=== PATIENT | female | born 1955 | race Caucasian/White ===

== ENCOUNTER → 2017-02-01 | Outpatient (CLI) | payer BC ==
[~2017-02-01] MED LIST: ASPI1TAB15 PO; ATOR1TAB19; ATOR1TAB19 PO; AUGM875T28 PO; BISO5TAB5; BISO5TAB5 PO; CALC1TAB26 PO; CALTTAB5 PO; CIPR-249 PO; CO Q100C PO; ESTRADIOL; FLAG500T PO; MAGN500T5 PO; MELO7.5T7; MELO7.5T7 PO; NORCOTAB PO; SENN1TAB2 PO; VAGI10TA PV
--- NOTE | 2017-02-01 14:18 | REPMRS ---
Patient History The patient states she had a clinical breast exam in 01/2017. Patient is postmenopausal. Family history of pancreatic cancer in sister at age 50 or over, ovarian cancer in mother at age 50 or over, and colorectal cancer in 2 brothers. Taking estrogen for 11 years. Digital Woman Screen Mammo: February 01, 2017 - Exam #: [id number] Bilateral CC and MLO view(s) were taken. Technologist: Agueda Monk, Technologist Prior study comparison: January 25, 2016, digital woman screen mammo performed at [facility]. January 09, 2015, digital woman screen mammo performed at [facility]. FINDINGS: The breast tissue is heterogeneously dense. This may lower the sensitivity of mammography. There is a fairly symmetric fibroglandular pattern in both breasts. There has been no interval development of masses, areas of architectural distortion or clusters of microcalcifications typical of malignancy. ASSESSMENT: BI-RADS/ACR category 2 mammogram. Benign finding(s). Recommendation Routine screening mammogram of both breasts in 1 year (for women over age 40). This mammogram was interpreted with the aid of an FDA-approved computer-aided dectection system. Electronically Signed By: Diogo Barone MD 02/01/17 [id number]
== END ==
LOC: M WHC 13:04
PROVIDERS: ATTEND Nurse Practitioner Family
DX: Z12.31 Encounter for screening mammogram for malignant neoplasm of breast (principal); R92.8 Other abnormal and inconclusive findings on diagnostic imaging of breast; Z78.0 Asymptomatic menopausal state; Z80.0 Family history of malignant neoplasm of digestive organs; Z79.890 Hormone replacement therapy

== ENCOUNTER 2017-02-12 06:39 | Day surgery (SDC) | payer BC ==
[2017-02-12] VITALS (8 sets, daily range): BP systolic 117–134; BP diastolic 58–67
[~2017-02-12] VITALS: Ht 154.9 cm; Wt 86.8 kg
[2017-02-12] MEDS ORDERED: MELO7.5T7 (06:49)
[2017-02-12] MEDS ORDERED: ATOR1TAB19 (06:49)
[2017-02-12] MEDS ORDERED: ESTRADIOL (06:49)
[2017-02-12] MEDS ORDERED: BISO5TAB5 (06:49)
[2017-02-12] MEDS ORDERED: NS 1,000 ML IV ONE (07:15)
[2017-02-12] MEDS ORDERED: MORPHINE 2 MG/ML 1ML SYRINGE IV PRN ×3 (07:15→13:00)
[2017-02-12] MEDS ORDERED: ONDANSETRON 4MG/2ML VIAL (J2405) IV ONE (07:15)
[2017-02-12 07:53] LABS: BASO % 0.3 % (0.0-1.0); EOS # 0.2 K/mm3 (0.0-0.50); EOS % 1.6 % (0.0-3.0); LARGE UNSTAINED CELL # 0.2 K/mm3 (0.0-0.4); LARGE UNSTAINED CELL % 1.6 % (0.0-4.0); LYMPH # 1.3 K/mm3 (1.5-4.5); LYMPH % 10.6 % (24.0-44.0); MEAN CORPUSCULAR HEMOGLOBIN 32.5 pg (27.0-33.0); MEAN CORPUSCULAR HGB CONC 35.3 g/dl (32.0-36.5); MONO # 0.5 K/mm3 (0.0-0.8); MONO % 3.9 % (0.0-5.0); NEUTROPHILS # 10.1 K/mm3 (1.8-7.7); PLATELET COUNT, AUTOMATED 226 k/mm3 (150-450); RED CELL DISTRIBUTION WIDTH 12.3 % (11.5-14.5); WHITE BLOOD COUNT 12.3 K/mm3 (4.0-10.0)
[2017-02-12 08:51] LABS: INR 0.98
[2017-02-12 09:02] LABS: ALBUMIN 3.4 GM/DL (3.2-5.2); ALBUMIN/GLOBULIN RATIO 0.85 (1.00-1.93); ALKALINE PHOSPHATASE 106 U/L (45-117); ALT/SGPT 25 U/L (12-78); AMYLASE 47 U/L (25-115); ANION GAP 7 MEQ/L (8-16); AST/SGOT 20 U/L (15-37); BILIRUBIN,DIRECT 0.1 MG/DL (0.0-0.2); BILIRUBIN,TOTAL 0.6 MG/DL (0.2-1.0); BLOOD UREA NITROGEN 22 MG/DL (7-18); CALCIUM LEVEL 9.2 MG/DL (8.8-10.2); CARBON DIOXIDE LEVEL 27 MEQ/L (21-32); CHLORIDE LEVEL 107 MEQ/L (98-107); CREATININE FOR GFR 0.77 MG/DL (0.55-1.02); GLOMERULAR FILTRATION RATE > 60.0 (>45); GLUCOSE, FASTING 103 MG/DL (80-110); POTASSIUM SERUM 4.1 MEQ/L (3.5-5.1); SODIUM LEVEL 141 MEQ/L (136-145); TOTAL PROTEIN 7.4 GM/DL (6.4-8.2)
[2017-02-12] MEDS ORDERED: ISOVUE-370 76% 100ML VIAL (Q9967) As Ordered ONE (09:22)
--- NOTE | 2017-02-12 10:11 | REP ---
Clinical: Right lower quadrant pain. Technique: Axial contrast enhanced images from the lung bases to the pubic symphysis using 100 ml Isovue 370 intravenous contrast material with coronal and sagittal re-formations. Findings: Findings are compatible with acute appendicitis and include a dilated, fluid filled appendix measuring 19 mm diameter with obstructing appendicolith at the base and surrounding periappendiceal inflammatory stranding with reactive adenopathy. Trace free fluid extends into the deep posterior cul-de-sac. No free air, bowel obstruction or drainable collection/abscess. Liver, spleen, pancreas, gallbladder, bilateral adrenal glands and kidneys are normal. Excluding the above-mentioned acute appendicitis, the enteric system is without obstruction or further inflammatory process. Pelvis demonstrates normal bladder and evidence for prior hysterectomy. No ascites. No free air. No retroperitoneal adenopathy. Atherosclerotic changes of the aorta and vasculature noted without aneurysm or dissection. Musculoskeletal structures are intact without focal osseous abnormality. Lung bases are clear. Visualized heart and pericardium are normal. Impression: Acute appendicitis as detailed above. Signed by Andres Carlton MD 02/12/2017 10:09 A
[2017-02-12] MEDS ORDERED: PIPERACILLIN/TAZOBACTAM SOD 3.375 GM in D5W MINI-BAG PLUS 50 ML IV ONE (10:15)
[2017-02-12] MEDS ORDERED: MORPHINE 4 MG/ML 1ML SYRINGE IV ONE (10:15)
[2017-02-12] MEDS ORDERED: BISO5TAB5 PO (10:46)
[2017-02-12] MEDS ORDERED: ATOR1TAB19 PO (10:46)
[2017-02-12] MEDS ORDERED: CALTTAB5 PO (10:46)
[2017-02-12] MEDS ORDERED: VAGI10TA PV (10:46)
[2017-02-12] MEDS ORDERED: CO Q100C PO (10:46)
[2017-02-12] MEDS ORDERED: MELO7.5T7 PO (10:46)
[2017-02-12] MEDS ORDERED: MAGN500T5 PO (10:46)
[2017-02-12] MEDS ORDERED: ASPI1TAB15 PO (10:46)
[2017-02-12] MEDS ORDERED: fentaNYL 100 MCG/2 ML INJECTION (J3010) As Ordered ONE (10:49)
[2017-02-12] MEDS ORDERED: ROCURONIUM BROMIDE 50 MG/5 ML VIAL/SYRINGE As Ordered ONE (10:49)
[2017-02-12] MEDS ORDERED: PROPOFOL 200 MG/20 ML VIAL As Ordered ONE (10:49)
[2017-02-12] MEDS ORDERED: LIDOCAINE 2% INJ 100 MG/5 ML SDV (FOR ANES.) As Ordered ONE (10:49)
[2017-02-12] MEDS ORDERED: MIDAZOLAM INJ 2 MG/2 ML VIAL (J2250) As Ordered ONE (10:50)
[2017-02-12] MEDS ORDERED: BUPIVACAINE/EPIN 0.25% 30 ML VIAL As Ordered ONE (11:02)
[2017-02-12] MEDS ORDERED: NEOSTIGMINE 1MG/ML 5 ML SYRINGE (J2710) As Ordered ONE (11:20)
[2017-02-12] MEDS ORDERED: ONDANSETRON 4MG/2ML VIAL (J2405) As Ordered ONE (11:20)
[2017-02-12] MEDS ORDERED: GLYCOPYRROLATE INJ 0.2 MG/ML 2 ML VIAL As Ordered ONE (11:20)
[2017-02-12] MEDS ORDERED: HYDROmorphone HCL 2 MG/ML 1ML VIAL (J1170) As Ordered ONE (11:41)
[2017-02-12] MEDS ORDERED: ONDANSETRON 4MG/2ML VIAL (J2405) IV PRN ×2 (12:45→13:00)
[2017-02-12] MEDS ORDERED: ACETAMINOPHEN TAB 650MG DOSE (2X325MG) PO PRN (12:45)
[2017-02-12] MEDS ORDERED: NORCO, ANEXSIA 5/325MG TABLET (HYDROcodone/ACETAMINOPHEN) PO PRN (12:45)
[2017-02-12] MEDS ORDERED: KETOROLAC 30 MG/ML VIAL (J1885) IV PRN (12:45)
[2017-02-12] MEDS ORDERED: MOM 30ML SUSPENSION UDC PO PRN (12:45)
--- NOTE | 2017-02-12 12:54 | HPE ---
DATE OF ADMISSION: 02/12/2017 REASON FOR CONSULTATION: Abdominal pain. HISTORY OF PRESENT ILLNESS: Patient is a 61-year-old female who presents with right lower quadrant abdominal pain that started on . It has gotten progressively worse over the past couple of days. She had some nausea, no vomiting. No fevers or chills. No changes in bowel or bladder habits. In the emergency room she had an elevated white count as well as acute appendicitis on CAT scan. Therefore, I was called to evaluate. She does have some history of a laparoscopic hysterectomy as well as a tubal ligation. No other abdominal surgeries. No recent travel or trauma to the abdomen. PAST MEDICAL HISTORY: Negative. PAST SURGICAL HISTORY: Tubal ligation. Three colonoscopies. Laparoscopic hysterectomy. ALLERGIES: None. HOME MEDICATIONS: Please see med recommendation. SOCIAL HISTORY: Negative. Denies drug, alcohol, tobacco abuse. REVIEW OF SYSTEMS: Pertinent positives and negatives as stated in the history of present illness. FAMILY HISTORY: Noncontributory. PHYSICAL EXAMINATION: GENERAL: Patient alert and oriented times three in no acute distress. VITAL SIGNS: Temperature 98.5, pulse 73, respirations 16, blood pressure 145/68, pulse ox 95% room air. HEENT: Pupils equally round and reactive to light and accommodation. HEART: S1-S2, regular rate and rhythm. LUNGS: Clear to auscultation bilaterally. ABDOMEN: Soft, tender to palpation right lower quadrant. Localized guarding and rebound. No signs generalized peritonitis. EXTREMITIES: No clubbing, cyanosis or edema. LABORATORIES: White count of 12.3, hemoglobin 14.9, platelets 226, INR 0.98, potassium 4.1, creatinine 0.77, lactic acid 1.2. IMAGING: CT abdomen and pelvis shows acute appendicitis with dilated fluid-filled appendix measuring 19 mm in diameter with an obstructing appendicolith at the base and surrounding periappendiceal inflammatory stranding with reactive adenopathy. ASSESSMENT/PLAN: The patient is a 61-year-old female with signs and symptoms consistent with acute appendicitis. RECOMMENDATIONS: Proceed laparoscopic possible open appendectomy. The risks and benefits of the procedure not limited to but including bleeding, infection, hernia formation, damage to surrounding structures, and need for further surgery were discussed in detail with the patient. Informed consent was obtained and the procedure was planned urgently for this morning. Postoperatively she will be kept overnight and make sure that she is afebrile for 24 hours and that her white count remains normal. If so, she will be able to be discharged home in the morning with p.o. antibiotics for a couple of days.
[2017-02-12] MEDS ORDERED: METOCLOPRAMIDE INJ 10MG/2ML VIAL (J2765) IV PRN (13:00)
[2017-02-12] MEDS ORDERED: PERCOCET 5MG/325MG TAB PO PRN (13:00)
[2017-02-12] MEDS ORDERED: fentaNYL 100 MCG/2 ML INJECTION (J3010) IV PRN (13:00)
[2017-02-12] MEDS ORDERED: LR 1,000 ML IV SCH (13:00)
--- NOTE | 2017-02-12 13:15 | RO ---
DATE OF PROCEDURE: 02/12/2017 PREOPERATIVE DIAGNOSIS: Acute appendicitis. POSTOPERATIVE DIAGNOSIS: Acute appendicitis. PROCEDURE: Laparoscopic appendectomy. SURGEON: Dr. Diogo Arguelles PATIENT CARE SECRETARY: None. ANESTHESIA: General. ESTIMATED BLOOD LOSS: 20. COMPLICATIONS: None. INDICATIONS FOR PROCEDURE: The patient is a 61-year-old female who presents with acute appendicitis. Recommendation was to proceed with laparoscopic, possible open appendectomy. Risks and benefits of the procedure not limited to but including bleeding, infection, hernia formation, damage surrounding structures, need for further surgery were discussed in detail with the patient and informed consent was obtained and the procedure was planned. PROCEDURE: The patient was brought back to operating room three after sufficient sedation and the abdomen was sterilely prepped and draped. Next, a time-out was done to confirm proper patient and proper procedure. Following that, a 5 mm incision made in the left lower quadrant. Veress needle was inserted and the abdomen was insufflated to 15 mmHg. Next, a 5 mm Optiview port was used to gain access to the abdomen. Once the abdomen was entered, an 8 mm port was s placed at the umbilicus and another 5 mm port suprapubically in the midline. The cecum was then mobilized carefully and the very large dilated appendix was identified adherent down to the right lower quadrant to the terminal ileum. The terminal ileum was carefully dissected free from the appendiceal inflammatory process. Upon trying to elevate the appendix in the air, it was easily perforated and a large amount of purulent fluid drained from it. All of this was aspirated out. Once that was completed, the appendix was soft enough to be grabbed. It was elevated up in the air and the base of the appendix was able to dissected free circumferentially using curved [place] and dissectors. Once that was completed, the mesoappendix was dissected through using the Enseal. The base of the appendix was then amputated using two PDS Endoloops. The appendix was amputated off using the Enseal and brought out through the umbilical port site in a 5 mm EndoCatch bag. A 19-Telugu Jhon drain was then placed in the right lower quadrant and brought out through the suprapubic midline incision and tied in place with a #2-0 silk suture. The fascia at the umbilical port site had to be dilated to be able to remove the appendix so this was closed using an #0 Vicryl suture on a Bora-Zaldivar needle. Once that was completed, the abdomen was desufflated. The skin incisions were closed with #4-0 Vicryl subcuticular sutures. The abdomen cleaned and dried. Steri-Strips, 4x4 and tape were applied, thus ending the procedure.
[2017-02-12] MEDS: PIPERACILLIN/TAZOBACTAM SOD 3.375 GM in D5W MINI-BAG PLUS 50 ML IV SCH ×2 (16:09→22:20)
[2017-02-12] MEDS: MELOXICAM (MOBIC) 7.5 MG TAB PO SCH (16:50)
[2017-02-12] MEDS: LR 1,000 ML IV SCH ×2 (16:50→22:18)
[2017-02-12] MEDS: ATORVASTATIN 10 MG TAB PO SCH (16:50)
[2017-02-12] MEDS ORDERED: BISOPROLOL FUMARATE 5 MG TAB PO SCH (21:00)
[2017-02-12] MEDS: HEPARIN SOD (PORCINE) 5000 UNITS/ML VIAL SC SCH (22:18)
[2017-02-12] MEDS: SENOKOT S TAB PO SCH (22:18)
[2017-02-13] VITALS: BP 119/58
[2017-02-13 04:00] VITALS: BP 130/60
[2017-02-13] MEDS: PIPERACILLIN/TAZOBACTAM SOD 3.375 GM in D5W MINI-BAG PLUS 50 ML IV SCH ×2 (04:47→10:31)
[2017-02-13] MEDS: HEPARIN SOD (PORCINE) 5000 UNITS/ML VIAL SC SCH (06:21)
[2017-02-13 07:24] LABS: MEAN CORPUSCULAR HEMOGLOBIN 31.9 pg (27.0-33.0); MEAN CORPUSCULAR HGB CONC 34.6 g/dl (32.0-36.5); MEAN CORPUSCULAR VOLUME 92.1 fl (80.0-96.0); RED CELL DISTRIBUTION WIDTH 12.7 % (11.5-14.5); WHITE BLOOD COUNT 8.7 K/mm3 (4.0-10.0)
[2017-02-13 07:38] LABS: ANION GAP 6 MEQ/L (8-16); BLOOD UREA NITROGEN 14 MG/DL (7-18); CALCIUM LEVEL 8.5 MG/DL (8.8-10.2); CARBON DIOXIDE LEVEL 27 MEQ/L (21-32); CHLORIDE LEVEL 105 MEQ/L (98-107); CREATININE FOR GFR 0.73 MG/DL (0.55-1.02); GLOMERULAR FILTRATION RATE > 60.0 (>45); GLUCOSE, FASTING 108 MG/DL (80-110); POTASSIUM SERUM 3.7 MEQ/L (3.5-5.1); SODIUM LEVEL 138 MEQ/L (136-145)
[2017-02-13 08:00] VITALS: BP 127/59
[2017-02-13] MEDS: ATORVASTATIN 10 MG TAB PO SCH (08:18)
[2017-02-13] MEDS: MELOXICAM (MOBIC) 7.5 MG TAB PO SCH (08:19)
[2017-02-13] MEDS: SENOKOT S TAB PO SCH (08:19)
[2017-02-13] MEDS: LR 1,000 ML IV SCH (10:31)
[2017-02-13 12:00] VITALS: BP 119/66
[2017-02-13] MEDS ORDERED: AUGM875T28 PO (12:10)
[2017-02-13] MEDS ORDERED: NORCOTAB PO (12:10)
[2017-02-13] MEDS ORDERED: SENN1TAB2 PO (12:10)
--- NOTE | 2017-02-14 09:37 | DSES ---
DATE OF ADMISSION: 02/12/2017 DATE OF DISCHARGE: 02/13/2017 ADMISSION DIAGNOSIS: Acute appendecitis. DISCHARGE DIAGNOSIS: Acute appendicitis. HOSPITAL COURSE: The patient is a 61-year-old female who presents to the emergency room (ER) on 02/12/2017 with a complaint of 4 day history of right lower quadrant abdominal pain. She was found to have acute appendicitis on CT and was taken the operating room for urgent laparoscopic appendectomy. During the procedure, her appendix was very large and dilated and inflamed, and it perforated during the procedure. She had the procedure completed successfully and a drain left in place. She was sent back to the floor overnight with intravenous (IV) antibiotics and pain control and a regular diet. This morning she says that she has been feeling much better. She has been up ambulating in the halls, walking without any difficulty. tolerating a diet. No fevers or chills. No nausea or vomiting. She already had two bowel movements. Her pain is much improved in the right side. Drain output has been serosanguineous, and no difficulties with that. No fevers overnight, and her white count has returned to normal. Plan is to discharge home today, followup with me in the office in 2 weeks. No lifting, pushing or pulling more than 20 pounds. No baths for 5 days. She can shower when she gets home, and she was given the office number to call us if there are any questions. She will be discharged home with pain medication, stool softener as well as an antibiotic for the next 5 days, and I will see her in the office on this week to remove the drain.
[2017-04-05] MEDS ORDERED: CALC1TAB26 PO (14:49)
[2017-04-05] MEDS ORDERED: AUGM875T28 PO (14:49)
== END 2017-02-13 13:00 | disposition home or self-care (01) ==
LOC: M ED 06:39 → M SDC 10:20 → M PED 13:58 → M SDC 02-13 13:00
PROVIDERS: ATTEND Surgery
DX: K35.80 Unspecified acute appendicitis (principal); E78.4 Other hyperlipidemia; I10 Essential (primary) hypertension; Z79.899 Other long term (current) drug therapy
CPT/HCPCS: 36415; 44970; 74177; 80048; 80076; 81001; 82150; 83605; 83690; 83735; 85025; 85027; 85610; 85730; 87040; 87086; 88304; 93041; 96372; 96374; 96375; 96376; 99285; J1170; J1885; J2250; J2405; J2543; J2710; J3010; Q9967

== ENCOUNTER 2017-03-29 18:10 | Emergency (ER) | payer BC ==
[~2017-03-29] VITALS: Ht 154.9 cm; Wt 85.6 kg
[~2017-03-29 18:10] MED LIST changes: -CALC1TAB26 PO; -CIPR-249 PO; -FLAG500T PO
[2017-03-29] MEDS ORDERED: NS 1,000 ML IV ONE (19:00)
[2017-03-29] MEDS ORDERED: MORPHINE 4 MG/ML 1ML SYRINGE IV PRN (19:00)
[2017-03-29] MEDS ORDERED: ONDANSETRON 4MG/2ML VIAL (J2405) IV PRN (19:00)
[2017-03-29] MEDS ORDERED: GASTROGRAFIN SOLUTION 30ML (Q9963) As Ordered ONE (19:02)
[2017-03-29] MEDS ORDERED: GASTROGRAFIN SOLUTION 30ML (Q9963) PO ONE ×2 (19:15→19:45)
[2017-03-29 20:01] LABS: BASO % 0.1 % (0.0-1.0); EOS % 0.4 % (0.0-3.0); IMMATURE GRANULOCYTE % 0.7 % (0-0); LYMPH # 1.8 10^3/uL (1.5-4.5); LYMPH % 18.4 % (24.0-44.0); MEAN CORPUSCULAR HEMOGLOBIN 31.4 pg (27.0-33.0); MEAN CORPUSCULAR HGB CONC 34.4 g/dl (32.0-36.5); MEAN CORPUSCULAR VOLUME 91.1 fl (80.0-96.0); MONO # 0.8 10^3/uL (0.0-0.8); MONO % 8.2 % (0.0-5.0); NEUTROPHILS # 7.1 10^3/uL (1.8-7.7); NEUTROPHILS % 72.2 % (36.0-66.0); PLATELET COUNT, AUTOMATED 233 10^3/uL (150-450); RED CELL DISTRIBUTION WIDTH 13.2 % (11.5-14.5); WHITE BLOOD COUNT 9.8 10^3/uL (4.0-10.0)
[2017-03-29 20:29] LABS: ALBUMIN 3.9 GM/DL (3.2-5.2); ALBUMIN/GLOBULIN RATIO 1.05 (1.00-1.93); ALKALINE PHOSPHATASE 100 U/L (45-117); ALT/SGPT 29 U/L (12-78); ANION GAP 8 MEQ/L (8-16); AST/SGOT 23 U/L (15-37); BILIRUBIN,DIRECT 0.2 MG/DL (0.0-0.2); BILIRUBIN,TOTAL 0.8 MG/DL (0.2-1.0); BLOOD UREA NITROGEN 15 MG/DL (7-18); CALCIUM LEVEL 8.9 MG/DL (8.8-10.2); CARBON DIOXIDE LEVEL 29 MEQ/L (21-32); CHLORIDE LEVEL 103 MEQ/L (98-107); CREATININE FOR GFR 0.77 MG/DL (0.55-1.02); GLOMERULAR FILTRATION RATE > 60.0 (>45); GLUCOSE, FASTING 97 MG/DL (80-110); POTASSIUM SERUM 4.1 MEQ/L (3.5-5.1); SODIUM LEVEL 140 MEQ/L (136-145); TOTAL PROTEIN 7.6 GM/DL (6.4-8.2)
[2017-03-29] MEDS ORDERED: ISOVUE-370 76% 100ML VIAL (Q9967) As Ordered ONE (21:08)
--- NOTE | 2017-03-29 22:20 | REPUSA ---
CT of the abdomen and pelvis with contrast Clinical statement: Pain. Technique: Multiple axial CT images were obtained from the base of the lungs through the floor of the pelvis utilizing 5 mm axial slices after administration of oral and nonionic intravenous contrast. C oronal and sagittal reconstructions were also obtained. Comparison: 02/12/2017. Findings: Chest: The visualized lung bases are clear. Abdomen: The liver, spleen, pancreas, kidneys, gallbladder, and adrenal glands are unremarkable. The aorta is within normal limits. There is no evidence of abdominal lymphadenopathy or ascites. Pelvis: There is focal bowel wall thickening with inflammation around the ileocecal junction. The pat ient is status post appendectomy. The remainder of the bowel is unremarkable. The urinary bladder is within normal limits. The other pelvic structures appear grossly intact. There is no evidence of pelv ic lymphadenopathy or ascites. Bones: There are no suspicious osseous abnormalities seen. There is mild degenerative disc disease at L5/S1. Impression: 1. Patient status post appendectomy. No evidence of abscess. 2. However, there is focal bowel wall thickening at the ileocecal junction, similar in appearance to the prior study. Moderate surrounding inflammatory stranding as well small on of free fluid is noted. Now loculated fluid collection is identified. There is no evidence of bowel obstruction. 3. The other CT findings are grossly stable. SHANTELL Blanchard, was notified of these findings at 10:12 PM on 03/29/2017.
[2017-03-29] MEDS ORDERED: CIPROFLOXACIN 500 MG TAB PO ONE (23:15)
[2017-03-29] MEDS ORDERED: metroNIDAZOLE (FLAGYL) 500 MG TAB PO ONE (23:15)
[2017-03-29] MEDS ORDERED: FLAG500T PO (23:17)
[2017-03-29] MEDS ORDERED: CIPR-249 PO (23:17)
[2017-03-29 23:29] VITALS: BP 146/76
[2017-04-05] MEDS ORDERED: AUGM875T28 PO (14:49)
[2017-04-05] MEDS ORDERED: CALC1TAB26 PO (14:49)
== END 2017-03-29 23:31 | disposition home or self-care (01) ==
LOC: M ED 18:10
DX: Z90.89 Acquired absence of other organs (principal); I10 Essential (primary) hypertension; E78.5 Hyperlipidemia, unspecified; Z79.82 Long term (current) use of aspirin; Z79.899 Other long term (current) drug therapy
CPT/HCPCS: 74177; 80048; 80076; 81001; 83605; 83690; 85025; 96361; 96374; 96375; 99283; J2405; Q9963; Q9967

== ENCOUNTER → 2018-01-25 | Outpatient (CLI) | payer BC ==
[2018-01-25 07:47] LABS: POTASSIUM SERUM 4.9 MEQ/L (3.5-5.1)
== END ==
LOC: M LAB 06:23
DX: E87.5 Hyperkalemia (principal)
CPT/HCPCS: 84132

== ENCOUNTER → 2018-02-02 | Outpatient (CLI) | payer BC | LOC: M WHC 13:28 | DX: Z12.31 Encounter for screening mammogram for malignant neoplasm of breast (principal) ==

== ENCOUNTER → 2018-10-24 | Outpatient (CLI) | payer BC ==
[~2018-10-24] MED LIST changes: +CALC1TAB26 PO; +CIPR-249 PO; +FLAG500T PO; +HYDR-3715 PO; -NORCOTAB PO; -SENN1TAB2 PO; +SENN1TAB40 PO
--- NOTE | 2018-11-05 00:17 | ECWPNPC ---
PATIENT NAME: JOSE BARNES : 1955 GENDER: FEMALE VISIT DATE: 10/24/2018 DISCHARGE DATE: 10/24/181716 VISIT LOCKED DATE TIME: PHYSICIAN: CONTRERAS HARDY MD RESOURCE: CONTRERAS HARDY MD REASON FOR APPOINTMENT 1. LBP/DDD HISTORY OF PRESENT ILLNESS NEW PATIENT CONSULT: WHEN DID YOUR PAIN FIRST START? . BRIEFLY DESCRIBE HOW YOUR PAIN STARTED? . HOW DOES YOUR PAIN CHANGE WITH TIME? . DOES YOUR PAIN AWAKEN YOU FROM SLEEP? . HOW MANY HOURS OF SLEEP DO YOU NORMALLY GET? . ANY DIAGNOSTIC TESTING? . FACILITY WHERE TESTS WERE DONE? ____. PAIN TREATMENT TREATMENT YES CANCER HAVE YOU EVER HAD ANY TYPE OF CANCER?NO NO. PAIN SCREENING: PATIENT HAS A COMPLAINT OF ACUTE OR CHRONIC PAIN :YES 62 YEAR OLD FEMALE PATIENT WITH A HISTORY OF CHRONIC LOW BACK PAIN. THE PATIENT DESCRIBES THE PAIN SHARP AND CONTINUOUS WITH A PAIN SCORE OF 6-9/10 DEPENDING ON PHYSICAL ACTIVITY. THE PATIENT SAYS THAT SHE HAS HAD THIS PAIN FOR MANY YEARS. THE PATIENT SAYS HER PAIN IS LOCATED IN HER LOW BACK AREA AND RADIATES DOWN TOWARDS HER BUTTOCKS. THE PATIENT SAYS HER PAIN INCREASES WHEN SHE IS STANDING FOR LONG PERIODS OF TIME OR WHEN SHE HAS TO BEND OVER. THE PATIENT STATES THAT SHE HAS DIFFICULTIES SLEEPING DUE TO THIS PAIN. PATIENT DENIES UNEXPLAINABLE WEIGHT LOSS, FEVER, CHILLS, NEW CHANGES ON HER URINARY OR BOWEL CONTROL. FALL RISK SCREENING: SCREENING : NO FALLS IN THE PAST YEAR. MICHEL INVENTORY: QUESTIONNAIRE ASSESSEDTBD SCORE VALUE CALCULATED TBD CURRENT MEDICATIONS TAKING COQ-10 200 MG CAPSULE 1 CAPSULE WITH A MEAL P.O. ONCE A DAY TAKING BISOPROLOL FUMARATE 5 MG TABLET 1 TABLET ORALLY ONCE A DAY TAKING ASPIR-81 81 MG TABLET DELAYED RELEASE 1 TABLET ORALLY THREE TIMES A WK TAKING MAGNESIUM 250 MG TABLET 1 TABLET WITH A MEAL ORALLY ONCE A DAY TAKING ATORVASTATIN CALCIUM 10 MG TABLET 1 TABLET ORALLY ONCE A DAY TAKING ZETIA 5 MG TABLET 1 TABLET ORALLY ONCE A DAY TAKING NYSTATIN 236048 UNIT/GM CREAM 1 APPLICATION TO AFFECTED AREA EXTERNALLY GROIN TWICE A DAY TAKING CALCIUM + D 315-200 MG-UNIT TABLET 1 TABLET ORALLY TWICE A DAY NOT-TAKING MELOXICAM 7.5 MG TABLET 1 TABLET P.O. ONCE A DAY NEEDED NOT-TAKING CALTRATE 600 1500 (600 CA) MG TABLET ORALLY NOT-TAKING VAGIFEM 10 MCG TABLET 1 TAB(S) INTRAVAGINALLY ONCE WEEKLY NOT-TAKING VITAMIN D 2000 UNIT TABLET 1 TAB(S) P.O. 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 SURGICAL HISTORY TUBAL LIGATION HYSTERECTOMY, LAVH WITH BSO 03/2006 COLONOSCOPY 2013 APPENDECTOMY 02/2017 EXPLORATORY SURGERY- STATED ANOTHER APPENDECTOMY 02/2017 RIGHT ROTATOR CUFF REPAIR 01/2018 FAMILY HISTORY FATHER: 49 YRS, HEART DISEASE MOTHER: 61 YRS, OVARIAN CANCER AT AGE 55 SIBLINGS: 36, 28, 60 YRS, BROTHER WITH COLON CANCER, SISTER WITH BONE CANCER, SISTER WITH PANCREATIC CANCER. ANOTHER BROTHER ALIVE WITH COLON CANCER. SECOND BROTHER ALIVE WITH SKIN CANCER. SHE IS ONE OF 10 SIBLINGS BROTHER LYMPHOMA DAUGHTER(S): ALIVE 29, 27 YRS 5 BROTHER(S) , 4 SISTER(S) . 2DAUGHTER(S) - HEALTHY. . NEPHEW ALIVE WITH H[employer]GKIN'S. ONE GRANDSON, AGE 2, WITH ANOTHER EXPECTED THIS SUMMER. SOCIAL HISTORY GENERAL: TOBACCO USE ARE YOU A:NONSMOKER OTHERS AT HOME: SPOUSE. HOUSING: OWNS HOME. EDUCATION LEVEL OF EDUCATION:HIGH SCHOOL DIET: REGULAR. LANGUAGE LANGUAGES SPOKEN:MALAYSIAN DOMESTIC VIOLENCE DO YOU FEEL SAFE IN YOUR ENVIRONMENT?YES EXERCISE: DAILYWALKING AND WAS GOING TO [employer] AT THE Y. LUNG CANCER SCREENING SMOKING STATUS:NON SMOKER PAIN CLINIC PFS, CLERGY, PUBLIC HEALTH REFERRALS PFS REFERRAL NEEDED?NO CLERGY REFERRAL NEEDED?NO PUBLIC HEALTH REFERRAL NEEDED?NO WAS THE PROVIDER NOTIFIED OF ANY PERTINENT INFO?NO HAS THE PATIENT BEEN EDUCATED REGARDING HIS/HER PLAN OF CARE?YES HAS THE PATIENT BEEN EDUCATED REGARDING PAIN, THE RISK FOR PAIN, THE IMPORTANCE OF EFFECTIVE PAIN MANAGEMENT, AND THE PAIN ASSESSMENT PROCESS?YES CAFFEINE CAFFEINE USE?NO DRINKS DECAF DAILY ADVANCE DIRECTIVE ADVANCE DIRECTIVE DISCUSSED WITH PATIENT:YES PT HAS A HCP AND STATES PAPERWORK IS AT HOME [employer] STATUS: . 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 HOSPITALIZATION/MAJOR DIAGNOSTIC PROCEDURE NO HOSPITALIZATION HISTORY. REVIEW OF SYSTEMS REVIEWED BY: PROVIDER: CONTRERAS HARDY MD . CONSTITUTIONAL: ANY CHANGE IN YOUR MEDICAL CONDITION? NO . CHILLS NO . FEVER NO . INFECTION: DO YOU HAVE NEW INFECTIONS? NO . DO YOU HAVE HISTORY OF MRSA? NO . MUSCULOSKELETAL: ANY NEW PATTERNS OF PAIN OR NUMBNESS? INCREASED PAIN WHEN STANDING DOES NOT BOTHER WHEN SITTING PT IS NOT SLEEPING WELL . SYTEMIC LUPUS NO . GASTROENTEROLOGY: ANY NEW CHANGE IN BOWEL CONTROL? NO . BARRETTS ESOPHAGUS NO . CIRRHOSIS NO . HEPATITIS NO . LIVER FAILURE NO . ACID REFLUX NO . UNEXPLAINED WEIGHT LOSS NO . GENITOURINARY: ANY NEW CHANGE IN BLADDER CONTROL? NO . IS THERE A CHANCE YOU COULD BE ? NO . HEMATOLOGY/LYMPH: DO YOU TAKE ANY BLOOD THINNERS? (FOR EXAMPLE- COUMADIN, PLAVIX, AGGRENOX, PLATEL, PRADAXA, OR XARELTO) NO . WHEN WAS YOUR LAST DOSE? DATE: TIME: . LOW PLATELET COUNT NO . SICKLE CELL DISEASE NO . VON WILLIEBRANDS NO . FACTOR V LEIDEN NO . THALLASEMIA NO . ANEMIA NO . EASY BRUISING NO . NEUROLOGY: HAVE YOU FALLEN IN THE PAST 12 MONTHS? NO . ANY NEW EXTREMITY NUMBNESS OR WEAKNESS? NO . HEAD INJURY NO . DEMENTIA NO . CEREBRAL PALSY NO . MULTIPLE SCLEROSIS NO . DIZZINESS NO . HEADACHE NO . STROKES NO . VERTIGO NO . CARDIOLOGY: DO YOU HAVE A PACEMAKER OR DEFIBRILLATOR? NO . ANGINA NO . HEART ATTACK NO . HEART SURGERY NO . CONGESTIVE HEART FAILURE/FLUID OVERLOAD NO . CHEST PAIN NO . HIGH BLOOD PRESSURE NO . IRREGULAR HEART BEAT NO . RESPIRATORY: HAVE YOU BEEN SICK IN THE PAST WEEK? NO . FEVER NO . FLU LIKE SYMPTOMS? NO . CPAP NO . BYPAP NO . ASTHMA NO . EMPHYSEMA NO . CHRONIC LUNG DISEASES NO . SHORTNESS OF BREATH ON EXERTION NO . DO YOU USE ANY TYPE OF TOBACCO (SMOKE, SMOKELESS, CHEW)? NO . COUGH NO . SNORING NO . INTEGUMENTARY: DO YOU HAVE ANY RASHES OR OPEN SORES? NO . ALLERGIC/IMMUNO: ARE YOU ALLERGIC TO IV DYE? NO . ANY NEW ALLERGIES? NO . PSYCHIATRIC: DO YOU HAVE THOUGHTS OF HURTING YOURSELF OR SOMEONE ELSE? NO . ARE YOU ABUSED, NEGLECTED, OR IN AN UNSAFE ENVIRONMENT? NO . ENDOCRINOLOGY: ARE YOU DIABETIC? NO . THYROID DISORDER NO . OTHER: DO YOU NEED ANY PRESCRIPTIONS? NO . IF YES, PLEASE LIST: ____ . ANY NEW PROBLEMS WITH YOUR MEDICATIONS? NO . WHEN DID YOU LAST EAT? ____ . WHEN DID YOU LAST DRINK? ____ . WHAT DID YOU LAST DRINK? ____ . NAME OF PERSON DRIVING YOU HOME? ____ . DO YOU HAVE ANY OTHER QUESTIONS OR CONCERNS NO . VITAL SIGNS WT 198.0 LBS, HT 61 IN, BMI 37.41 INDEX, BP 148/80 MM HG, HR 69 /MIN, RR 18 /MIN, TEMP 98.1 F, OXYGEN SAT % 97, SAFE IN ENV? (Y/N) YES, NA INITIALS MP 1444, REVIEWED BY: KG. EXAMINATION GENERAL EXAMINATION: PATIENT IS ALERT O X 3 AND COOPERATIVE. , LUNGS CLEAR, TO AUSCULTATION. HEART: NO MURMURS OR GALLOPS; FACIAL CRANIAL NERVES ARE GROSSLY NORMAL. GOOD SYMMETRY OF FACIAL MUSCLE MOVEMENT. NORMAL VISUAL EM. PATIENT HAS DIFFICULTY STANDING. PATIENT IS LIMPING FROM HER RIGHT LEG. TENDERNESS IN THE LOW BACK AREA. PAIN INCREASES OVER THE LUMBAR FACET JOINTS WITH EXTENSION AND LATERAL ROTATION OF THE BACK. ASSESSMENTS LOW BACK PAIN - M54.5 (PRIMARY) OTHER CHRONIC PAIN - G89.29 TREATMENT LOW BACK PAIN CLINICAL NOTES: WE DISCUSSED SEVERAL ISSUES WITH MRS. BARNES'S PAIN MANAGEMENT CASE. I WILL ORDER A LUMBAR MRI TO GET A BETTER UNDERSTANDING OF WHERE THE PATIENT'S PAIN MAY BE COMING FROM. I WOULD LIKE THE PATIENT TO START USING TIZANIDINE AT NIGHT FOR SPASMS AND PAIN TO HELP HER SLEEP BETTER. THE PATIENT WILL USE MELOXICAM DURING THE DAY FOR PAIN RELIEF. THE PATIENT WILL FOLLOW UP IN 3 WEEKS. INSTRUCTIONS WERE GIVEN, QUESTIONS WERE ANSWERED, PATIENT REPORTS UNDERSTANDING AND AGREES WITH THE PLAN. I, DARREL JORDAN, DOCUMENTED THE ABOVE INFORMATION ACTING A SCRIBE FOR DR. HARDY. I HAVE REVIEWED THE ABOVE DOCUMENT, WRITTEN BY DARREL DIOP AND I VERIFY THAT IT IS ACCURATE. DEAR DR. FIELD:THANK YOU FOR YOUR KIND REFERRAL OF MRS. BARNES. IF YOU WANT TO DISCUSS HER CASE WITH ME PLEASE CALL ME AT THE PAIN CENTER AT [phone]. SINCERELY,CONTRERAS HARDY, [facility] . OTHERS START TIZANIDINE HCL TABLET, 2 MG, 1 TABLET NEEDED, ORALLY FOR SPASMS AND PAIN, BEFORE BEDTIME MAY REPEAT IN 4 HRS MDD2, 30 DAYS, 45, REFILLS 1 START MELOXICAM TABLET, 15 MG, 1 TABLET WITH FOOD, ORALLY FOR PAIN, ONCE A DAY, 30 DAY(S), 30 TABLET, REFILLS 1 PREVENTIVE MEDICINE PAIN CLINIC TEACHING: MEDICATIONS NEW MEDICATION TIZANIDINE INSTRUCTIONS PROVIDED AND REVIEWED WITH PT. VERBALIZED UNDERSTANDING. STATES HAS PREVIOUSLY TAKEN MELOXICAM AND UNDERSTANDS USAGE.. PROCEDURE CODES FA211 ESTABILISHED PATIENT [facility] CHARGE G8427 CURRENT MEDS W/DOSAGES DOCUMENTED G8730 PAIN ASSESS POS TOOL F/U PLAN DOC DISPOSITION & COMMUNICATION FOLLOW UP 3 WEEKS ELECTRONICALLY SIGNED BY CONTRERAS HARDY MD, MD ON 11/04/2018 AT 06:57 AM EDT DISCLAIMER : THIS IS A VISIT SUMMARY EXTRACTED FROM THE [employer] CHART. IT IS NOT A COPY OF THE [employer] PROGRESS NOTE. MTDD
== END ==
LOC: M PAIN 14:00
PROVIDERS: ATTEND Anesthesiology
DX: M54.5 Low back pain (principal); G89.29 Other chronic pain; M19.90 Unspecified osteoarthritis, unspecified site; E78.5 Hyperlipidemia, unspecified; Z79.82 Long term (current) use of aspirin; Z79.899 Other long term (current) drug therapy; Z86.79 Personal history of other diseases of the circulatory system

== ENCOUNTER → 2018-11-12 | Outpatient (CLI) | payer BC ==
--- NOTE | 2018-11-12 17:11 | REP ---
MR lumbar spine without contrast History: Back pain Decreased signal intensity on T2-weighted images is present in the lumbar intervertebral discs. The discs are decreased in height. These findings are consistent with disc degeneration. There is no disc bulge or herniation at the L1-2 level. The L1 nerves exit the neural foramina without compression. A diffuse disc bulge is present at the L2-3 level. There is minimal compression of the thecal sac. There is hypertrophy of the posterior articulating facets. The L2 nerves exit the neural foramina without compression. A diffuse disc bulge is present at the L3-4 level. There is minimal compression of the thecal sac. There is hypertrophy of the ligamenta flava and posterior articulating facets. The L3 nerves exit the neural foramina without compression. A diffuse disc bulge is present at the L4-5 level. There is minimal compression of the thecal sac. There is hypertrophy of the ligamenta flava and posterior articulating facets. The L4 nerves exit the neural foramina without compression. A diffuse disc bulge is present at the L5-L1 level. There is a millimeters of grade 1 spondylolisthesis of L5 on S1. There is minimal compression of the thecal sac. There is hypertrophy of the posterior articulating facets. There is compression of the L5 nerves in the neural foramina. The conus medullaris is normal in appearance terminating at the level of the L1-2 intervertebral disc. Normal signal intensity is present in the lumbar vertebral bodies. Impression: 1. Diffuse disc bulges at the L2-3 through L4-5 levels with minimal thecal sac compression. 2. Diffuse disc bulge at the L5-L1 level with minimal thecal sac compression. There is grade 1 spondylolisthesis of L5 on S1. There is compression of the L5 nerves in the neural foramina. Electronically Signed by Fernando Rubi MD 11/12/2018 05:02 P
== END ==
LOC: M RAD 15:59
PROVIDERS: ATTEND Anesthesiology
DX: M51.26 Other intervertebral disc displacement, lumbar region (principal); M43.16 Spondylolisthesis, lumbar region

== ENCOUNTER → 2018-11-22 | Outpatient (CLI) | payer BC ==
--- NOTE | 2018-12-01 23:15 | ECWPNPC ---
PATIENT NAME: JOSE BARNES : 1955 GENDER: FEMALE VISIT DATE: 11/22/2018 DISCHARGE DATE: 11/22/18 1603 VISIT LOCKED DATE TIME: PHYSICIAN: CONTRERAS HARDY MD RESOURCE: CONTRERAS HARDY MD REASON FOR APPOINTMENT 1. FOLLOW UP LOW BACK- REVIEW MRI VERY QUICK F/U HISTORY OF PRESENT ILLNESS HISTORY OF PRESENT ILLNESS: PAIN THE PATIENT DESCRIBES THE PAIN... 63 YEAR OLD FEMALE PATIENT WITH A HISTORY OF CHRONIC LOW BACK PAIN. THE PATIENT DESCRIBES THE PAIN ACHING, STABBING, AND CONTINUOUS WITH A PAIN SCORE OF 7-10/10 DEPENDING ON PHYSICAL ACTIVITY. THE PATIENT STATES SHE HAS BEEN SUFFERING FROM THE LOW BACK PAIN FOR MANY YEARS. THE PATIENT SAYS THE PAIN INCREASES WITH PHYSICAL ACTIVITY SUCH WALKING, LIFTING OBJECTS, AND HOUSEKEEPING. PATIENT DENIES UNEXPLAINABLE WEIGHT LOSS, FEVER, CHILLS, NEW CHANGES ON HER URINARY OR BOWEL CONTROL. FALL RISK SCREENING: SCREENING :NO FALLS REPORTED IN THE LAST YEAR CURRENT MEDICATIONS TAKING TIZANIDINE HCL 2 MG TABLET 1 TABLET NEEDED ORALLY FOR SPASMS AND PAIN BEFORE BEDTIME MAY REPEAT IN 4 HRS MDD2 TAKING MELOXICAM 15 MG TABLET 1 TABLET WITH FOOD ORALLY FOR PAIN ONCE A DAY TAKING COQ-10 200 MG CAPSULE 1 CAPSULE WITH A MEAL P.O. ONCE A DAY TAKING BISOPROLOL FUMARATE 5 MG TABLET 1 TABLET ORALLY ONCE A DAY TAKING ASPIR-81 81 MG TABLET DELAYED RELEASE 1 TABLET ORALLY THREE TIMES A WK TAKING MAGNESIUM 250 MG TABLET 1 TABLET WITH A MEAL ORALLY ONCE A DAY TAKING ATORVASTATIN CALCIUM 10 MG TABLET 1 TABLET ORALLY ONCE A DAY TAKING ZETIA 5 MG TABLET 1 TABLET ORALLY ONCE A DAY TAKING NYSTATIN 995804 UNIT/GM CREAM 1 APPLICATION TO AFFECTED AREA EXTERNALLY GROIN TWICE A DAY TAKING CALCIUM + D 315-200 MG-UNIT TABLET 1 TABLET ORALLY TWICE A DAY, NOTES: ONLY TAKES ONCE A DAY NOT-TAKING MELOXICAM 7.5 MG TABLET 1 TABLET P.O. ONCE A DAY NEEDED NOT-TAKING CALTRATE 600 1500 (600 CA) MG TABLET ORALLY NOT-TAKING VAGIFEM 10 MCG TABLET 1 TAB(S) INTRAVAGINALLY ONCE WEEKLY NOT-TAKING VITAMIN D 2000 UNIT TABLET 1 TAB(S) P.O. ONCE A DAY MEDICATION LIST REVIEWED AND RECONCILED WITH THE PATIENT PAST MEDICAL HISTORY POSTMENOPAUSE ARTHRITIS MITRAL VALVE PROLAPSE HYPERLIPIDEMIA MYRIAD MY RISK GENETIC TEST NEGATIVE FOR MUTATION BUT POS FOR UNCERTAIN VARIANT IN [place]LA[place] AND MSH6 GENES BOTH ASSOC WITH COLON CANCER YOSEF SILVAZICK SCORE 6 % LOW BACK PAIN CYSTOCELE, MIDLINE RIGHT ROTATOR CUFF TEAR RIGHT CARPAL TUNNEL SYNDROME ALLERGIES N.K.D.A. SURGICAL HISTORY TUBAL LIGATION HYSTERECTOMY, LAVH WITH BSO 03/2006 COLONOSCOPY 2013 APPENDECTOMY 02/2017 EXPLORATORY SURGERY- STATED ANOTHER APPENDECTOMY 02/2017 RIGHT ROTATOR CUFF REPAIR 01/2018 RIGHT CARPAL TUNNEL REPAIR EXTRACTION OF ALL WISDOM TEETH FAMILY HISTORY FATHER: 49 YRS, HEART DISEASE, DIAGNOSED WITH HEART DISEASE MOTHER: 61 YRS, OVARIAN CANCER AT AGE 55, CANCER SIBLINGS: 36, 28, 60 YRS, BROTHER WITH COLON CANCER,NONHODKINS LYMPHOMA, SISTER WITH BONE CANCER, SISTER WITH PANCREATIC CANCER. ANOTHER BROTHER ALIVE WITH COLON CANCER. SECOND BROTHER ALIVE WITH SKIN CANCER. SHE IS ONE OF 10 SIBLINGS DAUGHTER(S): ALIVE 29, 27 YRS 5 BROTHER(S) , 4 SISTER(S) . 2DAUGHTER(S) - HEALTHY. . NEPHEW ALIVE WITH HODGKIN'S. TWO GRANDSONS, ONE GRANDDAUGHTER WITH ANOTHER EXPECTED THIS SUMMER. SOCIAL HISTORY GENERAL: TOBACCO USE ARE YOU A:NONSMOKER OTHERS AT HOME: SPOUSE. HOUSING: OWNS HOME. EDUCATION LEVEL OF EDUCATION:HIGH SCHOOL DIET: REGULAR. LANGUAGE LANGUAGES SPOKEN:EQUATORIAL GUINEAN DOMESTIC VIOLENCE DO YOU FEEL SAFE IN YOUR ENVIRONMENT?YES RECREATIONAL DRUG USE DRUG USE?NO EXERCISE: DAILYWALKING AND WAS GOING TO [place] AT THE Y. LEARNING BARRIERS / SPECIAL NEEDS BARRIERS TO LEARNING?NO HEARING IMPAIRED?NO VISION IMPAIRED?YES :CORRECTIVE LENSES COGNITIVELY IMPAIRED?NO READINESS TO LEARN?YES LEARNING PREFERENCES?YES :BOOKLETS, HANDOUTS, DEMONSTRATION/VERBAL INSTRUCTION LEARNING CAPABILITIES PRESENT?YES EMOTIONAL BARRIERS?NO SPECIAL DEVICES?NO CLINICAL TRIAL EDUCATOR NEEDED?NO LUNG CANCER SCREENING SMOKING STATUS:NON SMOKER PAIN CLINIC PFS, CLERGY, PUBLIC HEALTH REFERRALS PFS REFERRAL NEEDED?NO CLERGY REFERRAL NEEDED?NO PUBLIC HEALTH REFERRAL NEEDED?NO WAS THE PROVIDER NOTIFIED OF ANY PERTINENT INFO? N/A HAS THE PATIENT BEEN EDUCATED REGARDING HIS/HER PLAN OF CARE?YES HAS THE PATIENT BEEN EDUCATED REGARDING PAIN, THE RISK FOR PAIN, THE IMPORTANCE OF EFFECTIVE PAIN MANAGEMENT, AND THE PAIN ASSESSMENT PROCESS?YES LATEX QUESTIONNAIRE LATEX ALLERGY : HAVE YOU EVER DEVELOPED ANY TYPE OF REACTION AFTER HANDLING LATEX PRODUCTS SUCH RUBBER GLOVES, CONDOMS, DIAPHRAGMS, BALLOONS, SOCKS, OR UNDERWEAR?NO LATEX ALLERGY : HAVE YOU EVER DEVELOPED ANY TYPE OF REACTION DURING OR AFTER DENTAL APPOINTMENT, VAGINAL/RECTAL EXAMINATION, SURGICAL PROCEDURE, OR ANY OTHER EXPOSURE?NO LATEX RISK : HAVE YOU EVER HAD ANY DIFFICULTY BREATHING OR HIVES AFTER EATING OR HANDLING ANY FRUITS, OR VEGETABLES; SUCH KIWI, BANANAS, STONE FRUITS, OR CHESTNUTSNO LATEX RISK : DO YOU HAVE A PREVIOUS PERSONAL HISTORY OF MORE THAN NINE SURGERIES, SPINA BIFIDA, OR REPEATED CATHERTIZATIONS? NO LATEX RISK : ARE YOU FREQUENTLY EXPOSED TO LATEX PRODUCTS IN YOUR OCCUPATION?NO DATE ASKED : 11/22/2018 CAFFEINE CAFFEINE USE?NO DRINKS DECAF DAILY ADVANCE DIRECTIVE ADVANCE DIRECTIVE DISCUSSED WITH PATIENT:YES 11-22-18 PT. STATES SHE HAS A HCP-,DEVONTE [phone]. ASKED TO BRING A COPY IN SO WE CAN SCAN IT INTO OUR SYSTEM. STATES SHE ALSO HAS POA AND LIVING WILL ORIENTAL ORTHODOX ORIENTAL ORTHODOX UATSDIN MARITAL STATUS: . 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 HOSPITALIZATION/MAJOR DIAGNOSTIC PROCEDURE SURGERIES REVIEW OF SYSTEMS REVIEWED BY: PROVIDER: CONTRERAS HARDY MD . CONSTITUTIONAL: ANY CHANGE IN YOUR MEDICAL CONDITION? NO . CHILLS NO . FEVER NO . INFECTION: DO YOU HAVE NEW INFECTIONS? NO . DO YOU HAVE HISTORY OF MRSA? NO . MUSCULOSKELETAL: ANY NEW PATTERNS OF PAIN OR NUMBNESS? YES,PAIN IS BETTER TODAY. USUALLY RUNS 8-9. SHE HAD AN INJECTION IN HER RIGHT KNEE 11/21/18 AND NOT SURE IF THIS HAS HELPED HER BACK DUE TO WALKING DIFFERENTLY . GASTROENTEROLOGY: ANY NEW CHANGE IN BOWEL CONTROL? NO . GENITOURINARY: ANY NEW CHANGE IN BLADDER CONTROL? NO . IS THERE A CHANCE YOU COULD BE ? NO . HEMATOLOGY/LYMPH: DO YOU TAKE ANY BLOOD THINNERS? (FOR EXAMPLE- COUMADIN, PLAVIX, AGGRENOX, PLATEL, PRADAXA, OR XARELTO) NO . WHEN WAS YOUR LAST DOSE? DATE: TIME: . NEUROLOGY: HAVE YOU FALLEN IN THE PAST 12 MONTHS? NO . ANY NEW EXTREMITY NUMBNESS OR WEAKNESS? NO . CARDIOLOGY: DO YOU HAVE A PACEMAKER OR DEFIBRILLATOR? NO . RESPIRATORY: HAVE YOU BEEN SICK IN THE PAST WEEK? NO . FEVER NO . FLU LIKE SYMPTOMS? NO . COUGH NO . INTEGUMENTARY: DO YOU HAVE ANY RASHES OR OPEN SORES? NO . ALLERGIC/IMMUNO: ARE YOU ALLERGIC TO IV DYE? NO . ANY NEW ALLERGIES? NO . PSYCHIATRIC: DO YOU HAVE THOUGHTS OF HURTING YOURSELF OR SOMEONE ELSE? NO . ARE YOU ABUSED, NEGLECTED, OR IN AN UNSAFE ENVIRONMENT? NO . ENDOCRINOLOGY: ARE YOU DIABETIC? NO . OTHER: DO YOU NEED ANY PRESCRIPTIONS? YES . IF YES, PLEASE LIST: NOT SURE IF SHE NEEDS A REFILL ON THE MELOXICAM . ANY NEW PROBLEMS WITH YOUR MEDICATIONS? NO . WHEN DID YOU LAST EAT? ____ . WHEN DID YOU LAST DRINK? ____ . WHAT DID YOU LAST DRINK? ____ . NAME OF PERSON DRIVING YOU HOME? ____ . DO YOU HAVE ANY OTHER QUESTIONS OR CONCERNS NO . VITAL SIGNS WT 197.2 LBS, HT 61 IN, BMI 37.26 INDEX, BP 131/61 MM HG, HR 79 /MIN, RR 18 /MIN, TEMP 98.6 F, OXYGEN SAT % 94%, SAFE IN ENV? (Y/N) Y, NA INITIALS AW 1421, REVIEWED BY: DEION. EXAMINATION GENERAL EXAMINATION: PATIENT IS ALERT O X 3 AND COOPERATIVE. TENDERNESS IN THE LOW BACK OVER THE FACET JOINTS. MRI OF THE LUMBAR SPINE DONE ON 11/12/2018 SHOWS FACET ARTHROPATHY CHANGES AT L4-L5 AND L5-S1 LEVELS. ASSESSMENTS SPONDYLOSIS OF LUMBAR REGION WITHOUT MYELOPATHY OR RADICULOPATHY - M47.816 (PRIMARY) SPONDYLOSIS OF LUMBOSACRAL REGION WITHOUT MYELOPATHY OR RADICULOPATHY - M47.817 TREATMENT SPONDYLOSIS OF LUMBAR REGION WITHOUT MYELOPATHY OR RADICULOPATHY CLINICAL NOTES: WE DISCUSSED SEVERAL ISSUES WITH MS. BARNES'S PAIN MANAGEMENT CASE. DUE TO THE LUMBAR SPONDYLOSIS, I WOULD LIKE TO MOVE FORWARD WITH A BILATERAL L4-L5, L5-S1 THERAPEUTIC FACET BLOCK AT THIS TIME. WE DISCUSSED THE BENEFITS, RISKS, AND ALTERNATIVES OF THE INJECTION AND THE PATIENT WOULD LIKE TO PROCEED. THE PATIENT WILL FOLLOW UP IN SEVERAL WEEKS AFTER THE INJECTION. INSTRUCTIONS WERE GIVEN, QUESTIONS WERE ANSWERED, PATIENT REPORTS UNDERSTANDING AND AGREES WITH THE PLAN. I, JEREMIAH FITZPATRICK, DOCUMENTED THE ABOVE INFORMATION ACTING A SCRIBE FOR DR. HARDY. I HAVE REVIEWED THE ABOVE DOCUMENT, WRITTEN BY JEREMIAH MENDOZAIBNaif AND I VERIFY THAT IT IS ACCURATE. . OTHERS NOTES: FACET JOINT INJECTION MATERIAL WAS PRINTED,FACET JOINT INJECTION: YOUR EXPERIENCE MATERIAL WAS PRINTED. PREVENTIVE MEDICINE PAIN CLINIC TEACHING: PROCEDURE TEACHING PT GIVEN WRITTEN AND VERBAL EDUCATION ON FACET JOINT INJECTIONS. PT ALSO GIVEN WRITTEN AND VERBAL PRE-PROCEDURE INSTRUCTIONS. PT VERBALIZES UNDERSTANDING OF ALL EDUCATION AND INSTRUCTIONS. XIMENA CASH 11/22/2018 4:04:16 PM > . PROCEDURE CODES FA211 ESTABILISHED PATIENT [facility] FACILITY CHARGE G8427 CURRENT MEDS W/DOSAGES DOCUMENTED G8730 PAIN ASSESS POS TOOL F/U PLAN DOC DISPOSITION & COMMUNICATION FOLLOW UP 3 WEEKS (REASON: L FB) ELECTRONICALLY SIGNED BY CONTRERAS HARDY MD, MD ON 12/01/2018 AT 06:24 PM EDT DISCLAIMER : THIS IS A VISIT SUMMARY EXTRACTED FROM THE [employer] CHART. IT IS NOT A COPY OF THE [employer] PROGRESS NOTE. NICO
== END ==
LOC: M PAIN 14:15
PROVIDERS: ATTEND Anesthesiology
DX: M47.816 Spondylosis without myelopathy or radiculopathy, lumbar region (principal); M47.817 Spondylosis without myelopathy or radiculopathy, lumbosacral region; G89.29 Other chronic pain; M19.90 Unspecified osteoarthritis, unspecified site; E78.5 Hyperlipidemia, unspecified; Z79.82 Long term (current) use of aspirin; Z79.899 Other long term (current) drug therapy

== ENCOUNTER 2019-01-17 06:43 | Day surgery (SDC) | payer BC ==
[~2019-01-17] VITALS: Ht 177.8 cm; Wt 87.1 kg
[~2019-01-17 06:43] MED LIST changes: +MAGN250T7 PO; +MOBI4TAB PO; +NS 1,000 ML IV ONE
[2019-01-17] MEDS ORDERED: PROPOFOL 500 MG/50 ML VIAL As Ordered ONE (07:46)
[2019-01-17] MEDS ORDERED: LIDOCAINE 2% INJ 100 MG/5 ML SDV (FOR ANES.) As Ordered ONE (07:46)
--- NOTE | 2019-01-17 08:03 | ROOR ---
Patient Name: Ashely Zaldivar Procedure Date: 01/17/2019 7:30 AM Date of : 1955 Age: 63 Room: [facility] Gender: Female Note Status: Finalized Procedure: Colonoscopy Indications: Screening patient at increased risk: Family history of colorectal cancer in multiple 1st-degree relatives Providers: Abdirahman Grant Jr, MD Referring MD: LUCILLE FIELD DO Requesting Provider: Medicines: Propofol per Anesthesia Complications: No immediate complications. Procedure: Pre-Anesthesia Assessment: - Prior to the procedure, a History and Physical was performed, and patient medications and allergies were reviewed. The patient is competent. The risks and benefits of the procedure and the sedation options and risks were discussed with the patient. All questions were answered and informed consent was obtained. Patient identification and proposed procedure were verified by the physician and the nurse in the pre-procedure area and in the procedure room. Mental Status Examination: alert and oriented. Airway Examination: normal oropharyngeal airway and neck mobility. Respiratory Examination: clear to auscultation. CV Examination: normal. ASA Grade Assessment: II - A patient with mild systemic disease. After reviewing the risks and benefits, the patient was deemed in satisfactory condition to undergo the procedure. The anesthesia plan was to use moderate sedation / analgesia (conscious sedation). Immediately prior to administration of medications, the patient was re-assessed for adequacy to receive sedatives. The heart rate, respiratory rate, oxygen saturations, blood pressure, adequacy of pulmonary ventilation, and response to care were monitored throughout the procedure. The physical status of the patient was re-assessed after the procedure. The Colonoscope was introduced through the anus and advanced to the cecum, identified by appendiceal orifice and ileocecal valve. The colonoscopy was performed without difficulty. The patient tolerated the procedure well. The quality of the bowel preparation was adequate. Findings: The rectum, descending colon, transverse colon, ascending colon, cecum, appendiceal orifice and ileocecal valve appeared normal. A few small and large-mouthed diverticula were found in the sigmoid colon. Impression: - The rectum, descending colon, transverse colon, ascending colon, cecum, appendiceal orifice and ileocecal valve are normal. - Diverticulosis in the sigmoid colon. - No specimens collected. Recommendation: - Discharge patient to home (ambulatory). - Repeat colonoscopy in 5 years for screening purposes. Abdirahman Grant MD Abdirahman Grant Jr, MD 01/17/2019 8:03:20 AM Electronically signed by Abdirahman Grant Jr, MD Number of Addenda: 0 Note Initiated On: 01/17/2019 7:30 AM Estimated Blood Loss: Estimated blood loss: none.
[2019-01-17 08:30] VITALS: BP 117/58
== END 2019-01-17 08:32 | disposition home or self-care (01) ==
LOC: M OPP 06:43
PROVIDERS: ATTEND Surgery
DX: Z12.11 Encounter for screening for malignant neoplasm of colon (principal); Z80.0 Family history of malignant neoplasm of digestive organs; K57.30 Diverticulosis of large intestine without perforation or abscess without bleeding; I10 Essential (primary) hypertension; M19.90 Unspecified osteoarthritis, unspecified site; Z79.82 Long term (current) use of aspirin; Z79.899 Other long term (current) drug therapy

== ENCOUNTER → 2019-01-29 | Outpatient (CLI) | payer BC ==
[~2019-01-29] MED LIST changes: +BISO5TAB14; +BISO5TAB14 PO; -BISO5TAB5; -BISO5TAB5 PO; +BUPIVACAINE HCL 0.25% 30 ML VIAL As Ordered ONE; +ISOVUE-M 200 41% 20ML VIAL (Q9966) As Ordered ONE; +LIDOCAINE 1% SDV INJ 30 ML VIAL As Ordered ONE; -NS 1,000 ML IV ONE; +SENN-53 PO; -SENN1TAB40 PO; +TRIAMCINOLONE ACETONIDE SUSP 40 MG/ML VIAL (J3301) As Ordered ONE; +diazePAM 5 MG TAB As Ordered ONE; +oxyCODONE 5MG TAB As Ordered ONE
--- NOTE | 2019-01-29 13:38 | REP ---
C-ARM VIEW LUMBAR SPINE: Single C-arm view lumbar spine performed during lumbar facet block performed by Dr. Cornell. Two needles are seen along the lower lumbar facets and a small amount of contrast is injected. 10 seconds fluoroscopy time utilized. Electronically Signed by Diogo Barone MD 01/30/2019 09:43 A
--- NOTE | 2019-02-01 01:05 | ECWPNPC ---
PATIENT NAME: JOSE BARNES : 1955 GENDER: FEMALE VISIT DATE: 01/29/2019 DISCHARGE DATE: 01/29/19 1028 VISIT LOCKED DATE TIME: PHYSICIAN: CONTRERAS HARDY MD RESOURCE: CONTRERAS HARDY MD REASON FOR APPOINTMENT 1. LEFT LUMBAR THERAPEUTIC FACET BLOCK HISTORY OF PRESENT ILLNESS HISTORY OF PRESENT ILLNESS: PAIN THE PATIENT DESCRIBES THE PAIN... FALL RISK SCREENING: SCREENING :NO FALLS REPORTED IN THE LAST YEAR CURRENT MEDICATIONS TAKING MELOXICAM 15 MG TABLET 1 TABLET WITH FOOD ORALLY FOR PAIN ONCE A DAY TAKING COQ-10 200 MG CAPSULE 1 CAPSULE WITH A MEAL P.O. ONCE A DAY TAKING BISOPROLOL FUMARATE 5 MG TABLET 1 TABLET ORALLY ONCE A DAY TAKING ASPIR-81 81 MG TABLET DELAYED RELEASE 1 TABLET ORALLY THREE TIMES A WK TAKING MAGNESIUM 250 MG TABLET 1 TABLET WITH A MEAL ORALLY ONCE A DAY TAKING ATORVASTATIN CALCIUM 10 MG TABLET 1 TABLET ORALLY ONCE A DAY TAKING NYSTATIN 060832 UNIT/GM CREAM 1 APPLICATION TO AFFECTED AREA EXTERNALLY GROIN TWICE A DAY TAKING CALCIUM + D 315-200 MG-UNIT TABLET 1 TABLET ORALLY TWICE A DAY, NOTES: ONLY TAKES ONCE A DAY NOT-TAKING TIZANIDINE HCL 2 MG TABLET 1 TABLET NEEDED ORALLY FOR SPASMS AND PAIN BEFORE BEDTIME MAY REPEAT IN 4 HRS MDD2 NOT-TAKING ZETIA 5 MG TABLET 1 TABLET ORALLY ONCE A DAY NOT-TAKING MELOXICAM 7.5 MG TABLET 1 TABLET P.O. ONCE A DAY NEEDED NOT-TAKING CALTRATE 600 1500 (600 CA) MG TABLET ORALLY NOT-TAKING VAGIFEM 10 MCG TABLET 1 TAB(S) INTRAVAGINALLY ONCE WEEKLY NOT-TAKING VITAMIN D 2000 UNIT TABLET 1 TAB(S) P.O. ONCE A DAY MEDICATION LIST REVIEWED AND RECONCILED WITH THE PATIENT PAST MEDICAL HISTORY POSTMENOPAUSE ARTHRITIS MITRAL VALVE PROLAPSE HYPERLIPIDEMIA MYRIAD MY RISK GENETIC TEST NEGATIVE FOR MUTATION BUT POS FOR UNCERTAIN VARIANT IN [place] AND MSH6 GENES BOTH ASSOC WITH COLON CANCER TYRER CUZICK SCORE 6 % LOW BACK PAIN CYSTOCELE, MIDLINE RIGHT ROTATOR CUFF TEAR RIGHT CARPAL TUNNEL SYNDROME ALLERGIES N.K.D.A. SURGICAL HISTORY TUBAL LIGATION HYSTERECTOMY, LAVH WITH BSO 03/2006 COLONOSCOPY 2014 APPENDECTOMY 02/2017 EXPLORATORY SURGERY- STATED ANOTHER APPENDECTOMY 02/2017 RIGHT ROTATOR CUFF REPAIR 01/2018 RIGHT CARPAL TUNNEL REPAIR EXTRACTION OF ALL WISDOM TEETH FAMILY HISTORY FATHER: 49 YRS, HEART DISEASE, DIAGNOSED WITH HEART DISEASE MOTHER: 61 YRS, OVARIAN CANCER AT AGE 55, CANCER SIBLINGS: 36, 28, 60 YRS, BROTHER WITH COLON CANCER,NONHODKINS LYMPHOMA, SISTER WITH BONE CANCER, SISTER WITH PANCREATIC CANCER. ANOTHER BROTHER ALIVE WITH COLON CANCER. SECOND BROTHER ALIVE WITH SKIN CANCER. SHE IS ONE OF 10 SIBLINGS DAUGHTER(S): ALIVE 29, 27 YRS 5 BROTHER(S) , 4 SISTER(S) . 2DAUGHTER(S) - HEALTHY. . NEPHEW ALIVE WITH HODGKIN'S. TWO GRANDSONS, ONE GRANDDAUGHTER WITH ANOTHER EXPECTED THIS SUMMER. SOCIAL HISTORY GENERAL: TOBACCO USE ARE YOU A:NONSMOKER OTHERS AT HOME: SPOUSE. HOUSING: OWNS HOME. EDUCATION LEVEL OF EDUCATION:HIGH SCHOOL DIET: REGULAR. LANGUAGE LANGUAGES SPOKEN:BELIZEAN DOMESTIC VIOLENCE DO YOU FEEL SAFE IN YOUR ENVIRONMENT?YES RECREATIONAL DRUG USE DRUG USE?NO EXERCISE: DAILYWALKING AND WAS GOING TO [place] AT THE [place]. LEARNING BARRIERS / SPECIAL NEEDS BARRIERS TO LEARNING?NO HEARING IMPAIRED?NO VISION IMPAIRED?YES :CORRECTIVE LENSES COGNITIVELY IMPAIRED?NO READINESS TO LEARN?YES LEARNING PREFERENCES?YES :BOOKLETS, HANDOUTS, DEMONSTRATION/VERBAL INSTRUCTION LEARNING CAPABILITIES PRESENT?YES EMOTIONAL BARRIERS?NO SPECIAL DEVICES?NO PARKING LINE PAINTER NEEDED?NO LUNG CANCER SCREENING SMOKING STATUS:NON SMOKER PAIN CLINIC PFS, CLERGY, PUBLIC HEALTH REFERRALS PFS REFERRAL NEEDED?NO CLERGY REFERRAL NEEDED?NO PUBLIC HEALTH REFERRAL NEEDED?NO WAS THE PROVIDER NOTIFIED OF ANY PERTINENT INFO? N/A HAS THE PATIENT BEEN EDUCATED REGARDING HIS/HER PLAN OF CARE?YES HAS THE PATIENT BEEN EDUCATED REGARDING PAIN, THE RISK FOR PAIN, THE IMPORTANCE OF EFFECTIVE PAIN MANAGEMENT, AND THE PAIN ASSESSMENT PROCESS?YES LATEX QUESTIONNAIRE LATEX ALLERGY : HAVE YOU EVER DEVELOPED ANY TYPE OF REACTION AFTER HANDLING LATEX PRODUCTS SUCH RUBBER GLOVES, CONDOMS, DIAPHRAGMS, BALLOONS, SOCKS, OR UNDERWEAR?NO LATEX ALLERGY : HAVE YOU EVER DEVELOPED ANY TYPE OF REACTION DURING OR AFTER DENTAL APPOINTMENT, VAGINAL/RECTAL EXAMINATION, SURGICAL PROCEDURE, OR ANY OTHER EXPOSURE?NO LATEX RISK : HAVE YOU EVER HAD ANY DIFFICULTY BREATHING OR HIVES AFTER EATING OR HANDLING ANY FRUITS, OR VEGETABLES; SUCH KIWI, BANANAS, STONE FRUITS, OR CHESTNUTSNO LATEX RISK : DO YOU HAVE A PREVIOUS PERSONAL HISTORY OF MORE THAN NINE SURGERIES, SPINA BIFIDA, OR REPEATED CATHERIZATIONS? NO LATEX RISK : ARE YOU FREQUENTLY EXPOSED TO LATEX PRODUCTS IN YOUR OCCUPATION?NO DATE ASKED : 11/22/2018 CAFFEINE CAFFEINE USE?NO DRINKS DECAF DAILY ADVANCE DIRECTIVE ADVANCE DIRECTIVE DISCUSSED WITH PATIENT:YES PT. STATES SHE HAS A HCP-,EDVONTE [phone]. ASKED TO BRING A COPY IN SO WE CAN SCAN IT INTO OUR SYSTEM. STATES SHE ALSO HAS POA AND LIVING WILL VOODOO VOODOO VOODOO MARITAL STATUS: . ALCOHOL SCREENING DID YOU HAVE A DRINK CONTAINING ALCOHOL IN THE PAST YEAR?YES HOW OFTEN DID YOU HAVE A DRINK CONTAINING ALCOHOL IN THE PAST YEAR?TWO TO FOUR TIMES A MONTH (2 POINTS) HOW MANY DRINKS DID YOU HAVE ON A TYPICAL DAY WHEN YOU WERE DRINKING IN THE PAST YEAR?1 OR 2 (0 POINTS) HOW OFTEN DID YOU HAVE SIX OR MORE DRINKS ON ONE OCCASION IN THE PAST YEAR?NEVER (0 POINTS) POINTS2 INTERPRETATIONNEGATIVE OCCUPATION: [employer] AT [employer]. REVIEWED WITH PT 01/29/19 0909 LAS. HOSPITALIZATION/MAJOR DIAGNOSTIC PROCEDURE SURGERIES REVIEW OF SYSTEMS REVIEWED BY: PROVIDER: . CONSTITUTIONAL: ANY CHANGE IN YOUR MEDICAL CONDITION? NO . CHILLS NO . FEVER NO . INFECTION: DO YOU HAVE NEW INFECTIONS? NO . DO YOU HAVE HISTORY OF MRSA? NO . MUSCULOSKELETAL: ANY NEW PATTERNS OF PAIN OR NUMBNESS? NO . GASTROENTEROLOGY: ANY NEW CHANGE IN BOWEL CONTROL? NO . GENITOURINARY: ANY NEW CHANGE IN BLADDER CONTROL? NO . IS THERE A CHANCE YOU COULD BE ? NO . HEMATOLOGY/LYMPH: DO YOU TAKE ANY BLOOD THINNERS? (FOR EXAMPLE- COUMADIN, PLAVIX, AGGRENOX, PLATEL, PRADAXA, OR XARELTO) NO . WHEN WAS YOUR LAST DOSE? DATE: TIME: . NEUROLOGY: HAVE YOU FALLEN IN THE PAST 12 MONTHS? NO . ANY NEW EXTREMITY NUMBNESS OR WEAKNESS? NO . CARDIOLOGY: DO YOU HAVE A PACEMAKER OR DEFIBRILLATOR? NO . RESPIRATORY: HAVE YOU BEEN SICK IN THE PAST WEEK? NO . FEVER NO . FLU LIKE SYMPTOMS? NO . COUGH NO . INTEGUMENTARY: DO YOU HAVE ANY RASHES OR OPEN SORES? NO . ALLERGIC/IMMUNO: ARE YOU ALLERGIC TO IV DYE? NO . ANY NEW ALLERGIES? NO . PSYCHIATRIC: DO YOU HAVE THOUGHTS OF HURTING YOURSELF OR SOMEONE ELSE? NO . ARE YOU ABUSED, NEGLECTED, OR IN AN UNSAFE ENVIRONMENT? NO . ENDOCRINOLOGY: ARE YOU DIABETIC? NO . OTHER: DO YOU NEED ANY PRESCRIPTIONS? NO . IF YES, PLEASE LIST: ____ . ANY NEW PROBLEMS WITH YOUR MEDICATIONS? NO . WHEN DID YOU LAST EAT? ____01/28/19 1900 . WHEN DID YOU LAST DRINK? ____01/28/19 2100 . WHAT DID YOU LAST DRINK? ____WATER . NAME OF PERSON DRIVING YOU HOME? ____HUSBAND . DO YOU HAVE ANY OTHER QUESTIONS OR CONCERNS NO . VITAL SIGNS WT 195.4 LBS, HT 61 IN, BMI 36.92 INDEX, BP 145/79 MM HG, HR 64 /MIN, RR 18 /MIN, TEMP 97.4 F, OXYGEN SAT % 98%, NA INITIALS AW 0852. ASSESSMENTS SPONDYLOSIS OF LUMBAR REGION WITHOUT MYELOPATHY OR RADICULOPATHY - M47.816 (PRIMARY) TREATMENT SPONDYLOSIS OF LUMBAR REGION WITHOUT MYELOPATHY OR RADICULOPATHY SMC FACET BLOCK (PAIN)[id number] PROCEDURES PN LUMBAR FACET BLOCK THERAPEUTIC PRE PROCEDURE DIAGNOSIS LUMBAR SPONDYLOSIS, LUMBOSACRAL SPONDYLOSIS POST PROCEDURE DIAGNOSIS LUMBAR SPONDYLOSIS, LUMBOSACRAL SPONDYLOSIS PROCEDURE LEFT L4 - L5 AND LEFT L5 - S1 LUMBAR FACET THERAPEUTIC BLOCK SURGEON DR. CONTRERAS HARDY SPRINKLER WORKER NONE ANESTHESIA LOCAL PRE PROCEDURE NOTE THE PATIENT HAS A HISTORY OF CHRONIC LOW BACK PAIN. I EVALUATED THE PATIENT AND REVIEWED THE CHART. I WENT OVER THE RISKS, ALTERNATIVES, AND BENEFITS ASSOCIATED WITH THIS PROCEDURE. THE PATIENT WOULD LIKE TO PROCEED AND GIVE CONSENT TO PERFORMED THE PROCEDURE. THE PATIENT DENIES UNEXPLAINABLE WEIGHT LOSS, FEVER, CHILLS, OR NEW CHANGES IN URINARY OR BOWEL CONTROL DESCRIPTION OF PROCEDURE THE PATIENT WAS BROUGHT TO THE PROCEDURE ROOM AND PLACED IN THE PRONE POSITION. THE LUMBOSACRAL AREA WAS CLEANED WITH CHLORAPREP SOLUTION AND DRAPED ASEPTICALLY. THE PROCEDURE WAS DONE UNDER STERILE CONDITIONS. I CHECKED LATERALITY AND THE LEVEL WHERE THE PROCEDURE WAS GOING TO BE PERFORMED WITH THE PATIENT AND THE SUPPORTING STAFF AT THE MOMENT OF THE TIME OUT IN THE PROCEDURE ROOM. UNDER FLUOROSCOPIC GUIDANCE, THE TARGET POINT WAS SELECTED AT THE LEFT L4-L5 AND LEFT L5-S1 FACET JOINT. TARGET POINT WAS SELECTED AFTER LATERAL ROTATION AND TILT OF THE MAGNIFIER OF THE C-ARM. LIDOCAINE 0.5% WAS USED TO NUMB THE SKIN AND THE SUBCUTANEOUS TISSUE BELOW IT. SPINAL NEEDLES, 22-GAUGE, WERE ADVANCED UNDER FLUOROSCOPIC GUIDANCE AND FOLLOWING PATIENT FEEDBACK UNTIL THE TARGETS WERE TOUCHED. THE POSITION OF THE NEEDLES WAS VERIFIED WITH AP AND LATERAL VIEWS. AFTER PROPER POSITION OF THE NEEDLES WAS ACHIEVED,ISOVUE M-200 CONTRAST WAS INJECTED SHOWING ADEQUATE SPREAD OF THE DYE. THEN A SOLUTION OF 1.9 ML OF BUPIVACAINE 0.125% OF KENALOG 10 MG WAS INJECTED AT EACH SITE. THERE WAS NO EVIDENCE OF BLOOD, PARESTHESIA OR CEREBROSPINAL FLUID DURING THE PROCEDURE. THE PATIENT WAS SENT TO THE RECOVERY ROOM. THE PATIENT WAS MOVING THE EXTREMITIES AND DOING WELL. THERE WAS NO COMPLICATION DURING THE PROCEDURE. FLUOROSCOPY TIME WAS 10 SECONDS POST PROCEDURE NOTE THE PATIENT WILL BE SEEN IN A FOLLOW UP IN THE NEXT FEW WEEKS. INSTRUCTIONS WERE GIVEN, QUESTIONS WERE ANSWERED, AND THE PATIENT EXPRESSED UNDERSTANDING AND AGREES WITH THE PLAN I, COURTNEY SWAIN, DOCUMENTED THE ABOVE INFORMATION ACTING A SCRIBE FOR DR. HARDY. I HAVE REVIEWED THE ABOVE DOCUMENT, WRITTEN BY COURTNEY SWAIN SCRIBE AND I VERIFY THAT IT IS ACCURATE PROCEDURE CODES 24219 INJ PARAVERT F JNT L/S 1 LEV, [place]: [place] [address] INJ PARAVERT F JNT L/S 2 LEV, MODIFIERS: LT 6045F RADXPS IN END [id number] PXD DISPOSITION & COMMUNICATION FOLLOW UP 3 WEEKS ELECTRONICALLY SIGNED BY CONTRERAS HARDY MD, MD ON 01/31/2019 AT 05:29 PM EDT DISCLAIMER : THIS IS A VISIT SUMMARY EXTRACTED FROM THE [employer] CHART. IT IS NOT A COPY OF THE [employer] PROGRESS NOTE. MTDD
== END ==
LOC: M PAIN 08:45
PROVIDERS: ATTEND Anesthesiology
DX: G89.29 Other chronic pain (principal); M47.816 Spondylosis without myelopathy or radiculopathy, lumbar region; M54.5 Low back pain; Z79.82 Long term (current) use of aspirin; Z79.899 Other long term (current) drug therapy
CPT/HCPCS: 64493; 64494; J3301; Q9966

== ENCOUNTER → 2019-02-04 | Outpatient (CLI) | payer BC ==
[~2019-02-04] MED LIST changes: -BISO5TAB14; -BISO5TAB14 PO; +BISO5TAB5; +BISO5TAB5 PO; -BUPIVACAINE HCL 0.25% 30 ML VIAL As Ordered ONE; -ISOVUE-M 200 41% 20ML VIAL (Q9966) As Ordered ONE; -LIDOCAINE 1% SDV INJ 30 ML VIAL As Ordered ONE; -SENN-53 PO; +SENN1TAB40 PO; -TRIAMCINOLONE ACETONIDE SUSP 40 MG/ML VIAL (J3301) As Ordered ONE; -diazePAM 5 MG TAB As Ordered ONE; -oxyCODONE 5MG TAB As Ordered ONE
--- NOTE | 2019-02-04 16:57 | REPMRS ---
Patient History The patient states she had a clinical breast exam in 01/2019. Patient is postmenopausal. Family history of ovarian cancer at age 50 or over in mother, colorectal cancer in brother, colorectal cancer in brother, pancreatic cancer at age 50 or over in sister. Took estrogen for 12 years. 3D TOMOSYNTHESIS WAS PERFORMED. [facility] lifetime risk for breast cancer is 7.8%. Digital Woman Screen Mammo: February 04, 2019 - Exam #: [id number] Bilateral CC and MLO view(s) were taken. Technologist: Agueda Monk, Technologist Prior study comparison: February 02, 2018, bilateral digital woman screen mammo performed at [facility]. February 01, 2017, digital woman screen mammo performed at [facility]. FINDINGS: The breast tissue is heterogeneously dense. This may lower the sensitivity of mammography. There has been no change in the appearance of the mammogram from the prior studies. There is a moderate amount of residual fibroglandular tissue which is fairly symmetric. There is no interval development of dominant mass, areas of architectural distortion, or clustered microcalcification typical of malignancy. Assessment: BI-RADS/ACR category 1 mammogram. Negative Mammogram. Recommendation Routine screening mammogram in 1 year (for women over age 40). This mammogram was interpreted with the aid of an FDA-approved computer-aided dectection system. Electronically Signed By: Diogo Barone MD 02/04/19 9581
== END ==
LOC: M WHC 14:59
PROVIDERS: ATTEND Nurse Practitioner Family
DX: Z12.31 Encounter for screening mammogram for malignant neoplasm of breast (principal); Z78.0 Asymptomatic menopausal state; Z80.41 Family history of malignant neoplasm of ovary; Z80.0 Family history of malignant neoplasm of digestive organs; Z92.23 Personal history of estrogen therapy

== ENCOUNTER → 2019-02-27 | Outpatient (CLI) | payer BC ==
[~2019-02-27] MED LIST changes: -BISO5TAB5; -BISO5TAB5 PO; +BISO5TAB9; +BISO5TAB9 PO
--- NOTE | 2019-03-01 01:29 | ECWPNPC ---
PATIENT NAME: JOSE BARNES : 1955 GENDER: FEMALE VISIT DATE: 02/27/2019 DISCHARGE DATE: 02/27/19 1438 VISIT LOCKED DATE TIME: PHYSICIAN: RONNY BLANDON RESOURCE: RONNY BLANDON REASON FOR APPOINTMENT 1. POST FACET HISTORY OF PRESENT ILLNESS HISTORY OF PRESENT ILLNESS: PAIN THE PATIENT DESCRIBES THE PAIN... 63-YEAR-OLD FEMALE IN FOR POST FACET BLOCK FOLLOW-UP. SHE RATES HER PAIN PREPROCEDURE AT A 10 OUT OF 10 AND POSTPROCEDURE AT A 3 OUT OF 10. SHE FEELS THE PROCEDURE WORKED WELL AND CONTINUES TO DO SO. SHE RATES HER PAIN CURRENTLY AT A 3 OUT OF 10 AND DESCRIBES IT SHOOTING. FALL RISK SCREENING: SCREENING :NO FALLS REPORTED IN THE LAST YEAR CURRENT MEDICATIONS TAKING COQ-10 200 MG CAPSULE 1 CAPSULE WITH A MEAL P.O. ONCE A DAY TAKING BISOPROLOL FUMARATE 5 MG TABLET 1 TABLET ORALLY ONCE A DAY TAKING ASPIR-81 81 MG TABLET DELAYED RELEASE 1 TABLET ORALLY THREE TIMES A WK TAKING MAGNESIUM 250 MG TABLET 1 TABLET WITH A MEAL ORALLY ONCE A DAY TAKING ATORVASTATIN CALCIUM 10 MG TABLET 1 TABLET ORALLY ONCE A DAY TAKING NYSTATIN [id number] UNIT/GM CREAM 1 APPLICATION TO AFFECTED AREA EXTERNALLY GROIN DAILY TAKING CALCIUM + D 315-200 MG-UNIT TABLET 1 TABLET ORALLY TWICE A DAY TAKING ESTRADIOL 0.1 MG/GM CREAM 1 GM VAGINAL TWO TIMES A WEEK TAKING MELOXICAM 7.5 MG TABLET 1 TABLET P.O. ONCE A DAY NEEDED TAKING CALTRATE 600 1500 (600 CA) MG TABLET ORALLY NOT-TAKING TIZANIDINE HCL 2 MG TABLET 1 TABLET NEEDED ORALLY FOR SPASMS AND PAIN BEFORE BEDTIME MAY REPEAT IN 4 HRS MDD2 NOT-TAKING ZETIA 5 MG TABLET 1 TABLET ORALLY ONCE A DAY NOT-TAKING VAGIFEM 10 MCG TABLET 1 TAB(S) INTRAVAGINALLY ONCE WEEKLY NOT-TAKING VITAMIN D 2000 UNIT TABLET 1 TAB(S) P.O. 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 SURGICAL HISTORY TUBAL LIGATION HYSTERECTOMY, LAVH WITH BSO 03/2006 COLONOSCOPY 2018 APPENDECTOMY 02/2017 EXPLORATORY SURGERY- STATED ANOTHER APPENDECTOMY 02/2017 RIGHT ROTATOR CUFF REPAIR 01/2018 RIGHT CARPAL TUNNEL REPAIR EXTRACTION OF ALL WISDOM TEETH FAMILY HISTORY FATHER: 49 YRS, HEART DISEASE, DIAGNOSED WITH UNSPECIFIED HEART DISEASE MOTHER: 61 YRS, OVARIAN CANCER AT AGE 55, OTHER MALIGNANT NEOPLASM OF UNSPECIFIED SITE SIBLINGS: 36, 28, 60 YRS, BROTHER WITH COLON CANCER,NONHODKINS LYMPHOMA, SISTER WITH BONE CANCER, SISTER WITH PANCREATIC CANCER. ANOTHER BROTHER ALIVE WITH COLON CANCER. SECOND BROTHER ALIVE WITH SKIN CANCER. SHE IS ONE OF 10 SIBLINGS BROTHER FOLLICULAR LYMPHOMA DAUGHTER(S): ALIVE 29, 27 YRS 5 BROTHER(S) , 4 SISTER(S) . 2DAUGHTER(S) - HEALTHY. . NEPHEW ALIVE WITH HODGKIN'S. TWO GRANDSONS, ONE GRANDDAUGHTER WITH ANOTHER EXPECTED THIS SUMMER. SOCIAL HISTORY GENERAL: TOBACCO USE ARE YOU A:NONSMOKER NEVER SMOKER HIV / HEP-C SCREENING HIV TEST OFFERED TO PATIENT:YES DATE OFFERED:02/04/2019 TEST ACCEPTED:NO HEP-C TEST OFFERED TO PATIENT:YES DATE OFFERED:02/04/2019 REASON:PATIENT DECLINED TEST ACCEPTED:NO REASON:PATIENT DECLINED BROCHURE PROVIDED TO PATIENTNO OTHERS AT HOME: SPOUSE. HOUSING: OWNS HOME. EDUCATION LEVEL OF EDUCATION:HIGH SCHOOL DIET: REGULAR. LANGUAGE LANGUAGES SPOKEN:OCCITAN DOMESTIC VIOLENCE DO YOU FEEL SAFE IN YOUR ENVIRONMENT?YES RECREATIONAL DRUG USE DRUG USE?NO EXERCISE: NO REGULAR EXERCISE. LEARNING BARRIERS / SPECIAL NEEDS CHANGE FROM LAST VISIT?NO BARRIERS TO LEARNING?NO HEARING IMPAIRED?NO VISION IMPAIRED?YES COGNITIVELY IMPAIRED?NO :CORRECTIVE LENSES READINESS TO LEARN?YES LEARNING PREFERENCES?YES :BOOKLETS, HANDOUTS, DEMONSTRATION/VERBAL INSTRUCTION LEARNING CAPABILITIES PRESENT?YES EMOTIONAL BARRIERS?NO SPECIAL DEVICES?NO BROKERAGE OFFICE MANAGER NEEDED?NO LUNG CANCER SCREENING SMOKING STATUS:NON SMOKER PAIN CLINIC PFS, CLERGY, PUBLIC HEALTH REFERRALS PFS REFERRAL NEEDED?NO CLERGY REFERRAL NEEDED?NO PUBLIC HEALTH REFERRAL NEEDED?NO WAS THE PROVIDER NOTIFIED OF ANY PERTINENT INFO? N/A HAS THE PATIENT BEEN EDUCATED REGARDING HIS/HER PLAN OF CARE?YES HAS THE PATIENT BEEN EDUCATED REGARDING PAIN, THE RISK FOR PAIN, THE IMPORTANCE OF EFFECTIVE PAIN MANAGEMENT, AND THE PAIN ASSESSMENT PROCESS?YES LATEX QUESTIONNAIRE LATEX ALLERGY : HAVE YOU EVER DEVELOPED ANY TYPE OF REACTION AFTER HANDLING LATEX PRODUCTS SUCH RUBBER GLOVES, CONDOMS, DIAPHRAGMS, BALLOONS, SOCKS, OR UNDERWEAR?NO LATEX ALLERGY : HAVE YOU EVER DEVELOPED ANY TYPE OF REACTION DURING OR AFTER DENTAL APPOINTMENT, VAGINAL/RECTAL EXAMINATION, SURGICAL PROCEDURE, OR ANY OTHER EXPOSURE?NO DATE ASKED : 02/04/2019 LATEX RISK : HAVE YOU EVER HAD ANY DIFFICULTY BREATHING OR HIVES AFTER EATING OR HANDLING ANY FRUITS, OR VEGETABLES; SUCH KIWI, BANANAS, STONE FRUITS, OR CHESTNUTSNO LATEX RISK : DO YOU HAVE A PREVIOUS PERSONAL HISTORY OF MORE THAN NINE SURGERIES, SPINA BIFIDA, OR REPEATED CATHERIZATIONS? NO LATEX RISK : ARE YOU FREQUENTLY EXPOSED TO LATEX PRODUCTS IN YOUR OCCUPATION?NO CAFFEINE CAFFEINE USE?NO DRINKS DECAF DAILY ADVANCE DIRECTIVE ADVANCE DIRECTIVE DISCUSSED WITH PATIENT:YES PT. STATES SHE HAS A HCP-,DEVONTE [phone]. ASKED TO BRING A COPY IN SO WE CAN SCAN IT INTO OUR SYSTEM. STATES SHE ALSO HAS POA AND LIVING WILL SABIANIST SABIANIST DENOMINATIONAL MARITAL STATUS: . 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 REVIEWED WITH PT 01/29/19 0909 LAS. HOSPITALIZATION/MAJOR DIAGNOSTIC PROCEDURE SURGERIES REVIEW OF SYSTEMS REVIEWED BY: PROVIDER: GUILLE PATTON . CONSTITUTIONAL: ANY CHANGE IN YOUR MEDICAL CONDITION? NO . CHILLS NO . FEVER NO . INFECTION: DO YOU HAVE NEW INFECTIONS? NO . DO YOU HAVE HISTORY OF MRSA? NO . MUSCULOSKELETAL: ANY NEW PATTERNS OF PAIN OR NUMBNESS? NO . GASTROENTEROLOGY: ANY NEW CHANGE IN BOWEL CONTROL? NO . GENITOURINARY: ANY NEW CHANGE IN BLADDER CONTROL? NO . IS THERE A CHANCE YOU COULD BE ? NO . HEMATOLOGY/LYMPH: DO YOU TAKE ANY BLOOD THINNERS? (FOR EXAMPLE- COUMADIN, PLAVIX, AGGRENOX, PLATEL, PRADAXA, OR XARELTO) NO . WHEN WAS YOUR LAST DOSE? DATE: TIME: . NEUROLOGY: HAVE YOU FALLEN IN THE PAST 12 MONTHS? NO . ANY NEW EXTREMITY NUMBNESS OR WEAKNESS? NO . CARDIOLOGY: DO YOU HAVE A PACEMAKER OR DEFIBRILLATOR? NO . RESPIRATORY: HAVE YOU BEEN SICK IN THE PAST WEEK? NO . FEVER NO . FLU LIKE SYMPTOMS? NO . COUGH NO . INTEGUMENTARY: DO YOU HAVE ANY RASHES OR OPEN SORES? NO . ALLERGIC/IMMUNO: ARE YOU ALLERGIC TO IV DYE? NO . ANY NEW ALLERGIES? NO . PSYCHIATRIC: DO YOU HAVE THOUGHTS OF HURTING YOURSELF OR SOMEONE ELSE? NO . ARE YOU ABUSED, NEGLECTED, OR IN AN UNSAFE ENVIRONMENT? NO . ENDOCRINOLOGY: ARE YOU DIABETIC? NO . OTHER: DO YOU NEED ANY PRESCRIPTIONS? NO . IF YES, PLEASE LIST: ____ . ANY NEW PROBLEMS WITH YOUR MEDICATIONS? NO . WHEN DID YOU LAST EAT? ____ . WHEN DID YOU LAST DRINK? ____ . WHAT DID YOU LAST DRINK? ____ . NAME OF PERSON DRIVING YOU HOME? ____ . DO YOU HAVE ANY OTHER QUESTIONS OR CONCERNS NO . VITAL SIGNS WT 193.6 LBS, HT 61 IN, BMI 36.58 INDEX, BP 132/59 MM HG, HR 82 /MIN, RR 18 /MIN, TEMP 97.4 F, OXYGEN SAT % 96%, SAFE IN ENV? (Y/N) YES, NA INITIALS AW 1413, REVIEWED BY: JEFERSON. EXAMINATION GENERAL EXAMINATION: GENERALNO ACUTE DISTRESS, WELL NOURISHED AND HYDRATED. PSYCHAPPROPRIATE MOOD AND AFFECT . LUNGS:CLEAR TO AUSCULTATION BILATERALLY, NO WHEEZES, RHONCHI, RALES. HEART:NO MURMURS, REGULAR RATE AND RHYTHM. ASSESSMENTS SPONDYLOSIS OF LUMBAR REGION WITHOUT MYELOPATHY OR RADICULOPATHY - M47.816 (PRIMARY) TREATMENT SPONDYLOSIS OF LUMBAR REGION WITHOUT MYELOPATHY OR RADICULOPATHY CLINICAL NOTES: 63-YEAR-OLD FEMALE IN FOR POST FACET BLOCK FOLLOW-UP. SHE HAS BEEN PRESCRIBED MELOXICAM BY HER PCP AND STATES THAT IT HAS BEEN WORKING WELL FOR HER. GIVEN PRESENTING SYMPTOMS AND RESULTS OF PHYSICAL EXAMINATION RECOMMENDED FOLLOW-UP IN 2 MONTHS. PATIENT HAS EXPRESSED UNDERSTANDING OF AND WAS IN AGREEMENT WITH TREATMENT PLAN. GIVEN TIME TO ASK QUESTIONS AND EXPRESSED CONCERNS. DISPOSITION & COMMUNICATION FOLLOW UP 2 MONTHS (REASON: CHRONIC PAIN) ELECTRONICALLY SIGNED BY AVINASH LEVIN ON 02/28/2019 AT 01:14 PM EDT DISCLAIMER : THIS IS A VISIT SUMMARY EXTRACTED FROM THE [email or web address] CHART. IT IS NOT A COPY OF THE [email or web address] PROGRESS NOTE. NICO
== END ==
LOC: M PAIN 14:15
PROVIDERS: ATTEND Family Medicine
DX: M47.816 Spondylosis without myelopathy or radiculopathy, lumbar region (principal); M19.90 Unspecified osteoarthritis, unspecified site; E78.5 Hyperlipidemia, unspecified; Z79.82 Long term (current) use of aspirin; Z79.899 Other long term (current) drug therapy

== ENCOUNTER → 2019-03-03 | Outpatient (CLI) | payer BC ==
[2019-03-03 09:29] LABS: BASO % 0.4 % (0.0-1.0); EOS # 0.2 10^3/uL (0.0-0.5); EOS % 4.7 % (0.0-3.0); HEMATOCRIT 44.7 % (36.0-47.0); HEMOGLOBIN 15.3 g/dl (12.0-15.5); LYMPH # 2.4 10^3/uL (1.5-5.0); LYMPH % 49.6 % (24.0-44.0); MEAN CORPUSCULAR HEMOGLOBIN 32.3 pg (27.0-33.0); MEAN CORPUSCULAR HGB CONC 34.2 g/dl (32.0-36.5); MEAN CORPUSCULAR VOLUME 94.5 fl (80.0-96.0); MONO # 0.5 10^3/uL (0.0-0.8); MONO % 10.3 % (0.0-5.0); NEUTROPHILS # 1.7 10^3/uL (1.5-8.5); NEUTROPHILS % 34.6 % (36.0-66.0); PLATELET COUNT, AUTOMATED 242 10^3/uL (150-450); RED BLOOD COUNT 4.73 10^6/uL (4.00-5.40); WHITE BLOOD COUNT 4.9 10^3/uL (4.0-10.0)
[2019-03-03 09:52] LABS: ALT/SGPT 24 U/L (12-78); BLOOD UREA NITROGEN 20 MG/DL (7-18); CALCIUM LEVEL 9.3 MG/DL (8.8-10.2); CARBON DIOXIDE LEVEL 27 MEQ/L (21-32); CHLORIDE LEVEL 107 MEQ/L (98-107); CREATININE FOR GFR 0.78 MG/DL (0.55-1.30); GLOMERULAR FILTRATION RATE > 60.0 (>45); GLUCOSE, FASTING 90 MG/DL (70-100); SODIUM LEVEL 142 MEQ/L (136-145)
[2019-03-03 09:53] LABS: ALBUMIN 3.6 GM/DL (3.2-5.2); BILIRUBIN,TOTAL 0.6 MG/DL (0.2-1.0); CHOLESTEROL LEVEL 198 MG/DL (<200); CHOLESTEROL RISK RATIO 2.712 (<5); HDL CHOLESTEROL 73 MG/DL (>40); LDL CHOLESTEROL 107 MG/DL (<100); NON-HDL-C 125 MG/DL; TOTAL PROTEIN 6.7 GM/DL (6.4-8.2); TRIGLYCERIDES LEVEL 88 MG/DL (<150)
== END ==
LOC: M LAB 08:15
PROVIDERS: ATTEND Family Medicine
DX: I10 Essential (primary) hypertension (principal)

== ENCOUNTER → 2020-04-22 | Outpatient (CLI) | payer BC ==
[~2020-04-22] MED LIST changes: +ASPI-546 PO; -ASPI1TAB15 PO; +BISO5TAB14; +BISO5TAB14 PO; -BISO5TAB9; -BISO5TAB9 PO; +SENN-53 PO; -SENN1TAB40 PO
--- NOTE | 2020-04-22 16:17 | REP ---
INDICATION: LAUREN DIAG MAMMO/LEFT BREAST LUMP/N63.25/9OCLOCK POSITION; LEFT BREAST LUMP/N63.25/9 OCLOCK POSITION. Left breast lump on clinician breast exam. COMPARISON: Mammography comparison studies are dated February 01, 2017, February 02, 2018, February 04, 2019. TECHNIQUE: Bilateral CC and MLO) view(s) were taken. A skin marker is affixed to the skin at the site of the palpable lump on the left. Routine views are augmented by magnified focal spot-compression CC, true mL, and MLO views of the left breast. FINDINGS: Scattered fibroglandular elements are seen bilaterally. No suspicious or dominant density is seen. No microcalcification or architectural distortion is seen. No worrisome skin change is appreciated. 3-D tomosynthesis shows no additional finding. There is no evidence of mass or a spiculation at site of the palpable lump in the left breast or elsewhere on either side mammographically. No suspicious mammographic abnormality. The Volpara volumetric breast density pattern is B. Targeted sonography left breast: Targeted sonography is performed the left breast at the site of the palpable lump at approximately 9 o'clock, 5 cm from nipple. Heterogeneous fibroglandular background echotexture is seen. No cyst, mass, or acoustic shadowing is seen. No suspicious sonographic finding. IMPRESSION: BIRADS/ACR category 1 negative mammogram and ultrasound findings.. Clinical follow-up is advised. This patient's Tyrer-Cuzi lifetime breast cancer risk assessment score is 7.5%. This mammogram was interpreted with the aid of an FDA-approved computer-aided detection system. The patient states she had a clinical breast exam in April of 2020. The patient letter being requested is M2. RECOMMENDATION: Repeat screening mammography recommended 1 year (for women over 40). <Electronically signed by Bonifacio Noland > 04/22/20 7053
== END ==
LOC: M WHC 13:04
PROVIDERS: ATTEND Nurse Practitioner Family
DX: N63.25 Unspecified lump in the left breast, overlapping quadrants (principal)
CPT/HCPCS: 76642; 77066; G0279

== ENCOUNTER → 2020-07-29 | Outpatient (CLI) | payer BC ==
[2020-07-29 09:03] VITALS: BP 140/84
--- NOTE | 2020-07-29 09:43 | REP ---
INDICATION: N63.20 LT BREAST MASS, POST US GUIDED BIOPSY. Marker clip placement mammography. COMPARISON: Comparison mammography April 22, 2020. TECHNIQUE: Craniocaudal and mediolateral views of the left breast are obtained. This mammogram was interpreted with the aid of an FDA-approved computer-aided detection system. FINDINGS: Scattered fibroglandular elements are seen. A marker clip is seen in the medial left mid breast at approximately 9 o'clock position posterior 3rd. There was no mammographic target in this location. No evidence hematoma. . : IMPRESSION: Marker clip is seen post ultrasound-guided needle biopsy in the 9 o'clock position in the left breast medially. This patient's Tyrer-Cuzick lifetime breast cancer risk assessment score is 7.5%. RECOMMENDATION: Treatment pending biopsy result.. <Electronically signed by Bonifacio Noland > 07/29/20 0935
--- NOTE | 2020-07-29 10:38 | REP ---
INDICATION: N63.20 LT BREAST MASS,US GUIDED BIOPSY. COMPARISON: Comparison sonography 22 April 2020.. TECHNIQUE: Sonographic guidance is provided. FINDINGS: Sonographic guidance is provided to Dr. Neal who performed a needle biopsy under ultrasound guidance of a palpable lump. IMPRESSION: Sonographic guidance. Procedural imaging. <Electronically signed by Bonifacio Noland > 07/29/20 1032
--- NOTE | 2020-08-01 18:53 | ROOPDOC ---
[facility] Report Of Operation Report of Operation DATE OF PROCEDURE: 07/29/20 DIAGNOSIS: left breast palpable lesion PROCEDURE: Ultrasound guided biopsy of left breast palpable lesion with clip placement SURGEON: Sarah Vasquez BLOOD LOSS: minimal COMPLICATIONS: none Lidocaine 1% LOT [id number] Expiration 09/2023 Sodium Bicarbonate 4% LOT [id number] Expiration 09/2020 Hydromark clip LOT [id number] Expiration 03/2023 SHAPE 3 Bx device: BARD [id number] x10 cm LOT [id number] Expiration 04/2023 Informed consent was obtained. The most common risk and possible complications including bleeding, hematoma, bruising, infection, injury to surrounding structures were explained to the patient and the patient expressed understanding. Patient was placed on the bed in the supine position. Appropriate time out was done stating patients name, date of , and the procedure to be performed. The left breast was prepped and draped in the usual fashion. The palpation was u sed to confirm the location of the lesion in the left breast at 9:00 5CFN. Previously I asked patient to confirm this location as the site of palpable lump. Borders were also previously marked on the skin. Ultrasound was used to assure safe procedure and to avoid injury to the lung. Plain Lidocaine 1% and 4% sodium bicarbonate 10:2 mix was used to anesthetize the skin, the biopsy site and tissues along the anticipated biopsy tract. Small skin incision was made with blade number 11. BARD Marquee 14G cannula with introducer ([id number]) was inserted through the incision and advanced under the ultrasound guidance to position immediately adjacent to the palpable lesion. Next, the introducer was removed and BARD Marquee 14G biopsy device was places in the cannula. Pre-biopsy imaging, and post-biopsy imaging were captured. Five good core biopsies were taken at various levels of the lesion. Specimen was placed in formaldehyde, labeled with appropriate biopsy site and patients name, and sent to pathology for evaluation. Next, the biopsy device was withdrawn and a clip introducer was inserted into the biopsy site via the cannula. The SHAPE 3 Hydromark clip was deployed under sonographic guidance. Post-clip placement image was captured. Manual pressure over the biopsy cavity and tract was held after the clip introducer was withdrawn. No bleeding was noted upon removal of the pressure. Post-biopsy mammogram of the left breast was obtained and showed clip in expected position. Postprocedural dressing was placed. Patient tolerated procedure well. Discharge instructions were discussed with the patient and the patient expressed understanding. SARAH VASQUEZ DO Aug 01, 2020 18:53
== END ==
LOC: M WHCPRO 08:00
PROVIDERS: ATTEND Surgery
DX: N63.20 Unspecified lump in the left breast, unspecified quadrant (principal)

== ENCOUNTER → 2021-02-02 | Outpatient (CLI) | payer BC ==
--- NOTE | 2021-02-02 12:21 | REP ---
INDICATION: N63.20 LEFT BREAST MASS/S/P BX/ASSESS STABILITY. COMPARISON: Comparison study July [id number] and April 22, 2020. TECHNIQUE: Targeted left breast sonography, 9 o'clock position previous biopsy site. No previous sonographic abnormality. FINDINGS: Targeted sonography demonstrates homogeneous fibroglandular architecture. A HydroMARK clip device is again noted in place at the 9 o'clock position with some echogenic clip itself. No mass or cyst is seen. Flow flow slender coal fluid surrounding the IMPRESSION: BI-RADS category 2 benign findings. HydroMARK clip in 9 o'clock position. <Electronically signed by Bonifacio Noland > 02/02/21 [id number]
== END ==
LOC: M WHC 10:17
PROVIDERS: ATTEND Surgery
DX: N63.20 Unspecified lump in the left breast, unspecified quadrant (principal)

== ENCOUNTER → 2021-06-15 | Outpatient (CLI) | payer BC ==
--- NOTE | 2021-06-15 09:46 | REP ---
INDICATION: LAUREN SCR MAMMO. COMPARISON: 02/04/2019 as well as other prior exams. TECHNIQUE: MLO and CC views bilateral breasts with tomosynthesis. FINDINGS: Moderate heterogeneous fibroglandular tissue is present bilaterally. An oval nodular density is seen in the left retroareolar region, only in the CC projection. This measures 7 mm. It is not seen in the MLO projection. No other new mass is seen. No clustered microcalcifications are seen. The Volpara volumetric breast density pattern is B. IMPRESSION: BIRADS/ACR category 0, incomplete. Possible new 7 mm nodular density left retroareolar region, only seen in the CC projection. Recommend spot-compression tomographic CC view and spot compression left mL tomographic sequence. Ultrasound may also be necessary. This patient's Tyrer-Cuzick lifetime breast cancer risk assessment score is 7.1%. This mammogram was interpreted with the aid of an FDA-approved computer-aided detection system. The patient states she had a clinical breast exam in June 15 2021.. The patient letter being requested is M0. RECOMMENDATION: Recommend spot compression views and ultrasound left breast as discussed above. <Electronically signed by Diogo Barone > 06/15/21 0943
== END ==
LOC: M WHC 08:10
PROVIDERS: ATTEND Nurse Practitioner Women's Health
DX: Z12.31 Encounter for screening mammogram for malignant neoplasm of breast (principal)

== ENCOUNTER → 2021-07-29 | Outpatient (CLI) | payer BC ==
[~2021-07-29] MED LIST changes: +**SFHN** LIDOCAINE 1% MDV 20ML VIAL ONE; +**SFHN** SODIUM BICARBONATE 8.4% 10MEQ 10ML VIAL ONE
[2021-07-29 12:15] VITALS: BP 144/88
== END ==
LOC: M WHCPRO 09:34
PROVIDERS: ATTEND Surgery
DX: N60.32 Fibrosclerosis of left breast (principal); N60.89 Other benign mammary dysplasias of unspecified breast

== ENCOUNTER → 2022-01-24 | Outpatient (CLI) | payer BC ==
[~2022-01-24] MED LIST changes: -**SFHN** LIDOCAINE 1% MDV 20ML VIAL ONE; -**SFHN** SODIUM BICARBONATE 8.4% 10MEQ 10ML VIAL ONE
== END ==
LOC: M WHC 07:53
PROVIDERS: ATTEND Surgery
DX: R92.8 Other abnormal and inconclusive findings on diagnostic imaging of breast (principal)
CPT/HCPCS: 77065; G0279

== ENCOUNTER → 2022-06-07 | Outpatient (CLI) | payer BC ==
[2022-06-07 10:52] LABS: ALBUMIN 3.9 G/DL (3.2-5.2); BLOOD UREA NITROGEN 22 MG/DL (9-23); CALCIUM LEVEL 9.4 MG/DL (8.3-10.6); CARBON DIOXIDE LEVEL 30 MMOL/L (20-31); CHLORIDE LEVEL 103 MMOL/L (98-107); CREATININE FOR GFR 0.67 MG/DL (0.55-1.30); GLOMERULAR FILTRATION RATE > 60.0 (>45); GLUCOSE, FASTING 98 MG/DL (74-106); PHOSPHORUS LEVEL 2.9 MG/DL (2.4-5.1); POTASSIUM SERUM 5.3 MMOL/L (3.5-5.1); SODIUM LEVEL 140 MMOL/L (136-145)
== END ==
LOC: M PLALAB 08:45
PROVIDERS: ATTEND Internal Medicine Cardiovascular Disease
DX: I10 Essential (primary) hypertension (principal); R60.0 Localized edema; R06.02 Shortness of breath

== ENCOUNTER → 2022-06-10 | Outpatient (CLI) | payer BC ==
[2022-06-10 16:21] LABS: BLOOD UREA NITROGEN 22 MG/DL (9-23); CALCIUM LEVEL 9.7 MG/DL (8.3-10.6); CARBON DIOXIDE LEVEL 33 MMOL/L (20-31); CHLORIDE LEVEL 102 MMOL/L (98-107); CREATININE FOR GFR 0.76 MG/DL (0.55-1.30); GLOMERULAR FILTRATION RATE > 60.0 (>45); GLUCOSE, FASTING 92 MG/DL (74-106); POTASSIUM SERUM 4.2 MMOL/L (3.5-5.1); SODIUM LEVEL 141 MMOL/L (136-145)
== END ==
LOC: M PLALAB 13:50
PROVIDERS: ATTEND Physician Assistant
DX: I10 Essential (primary) hypertension (principal)

== ENCOUNTER → 2022-06-17 | Outpatient (CLI) | payer BC | LOC: M WHC 10:50 | PROVIDERS: ATTEND Nurse Practitioner Family | DX: Z12.31 Encounter for screening mammogram for malignant neoplasm of breast (principal) ==

== ENCOUNTER → 2022-06-17 | Outpatient (REF) | payer BC | LOC: M PLALAB 13:44 | PROVIDERS: ATTEND Nurse Practitioner Family | DX: Z53.9 Procedure and treatment not carried out, unspecified reason (principal) ==

== ENCOUNTER → 2022-06-27 | Outpatient (CLI) | payer BC | LOC: M SLEEP HO 11:57 | PROVIDERS: ATTEND Internal Medicine Cardiovascular Disease | DX: G47.30 Sleep apnea, unspecified (principal) ==

== ENCOUNTER → 2022-07-05 | Outpatient (CLI) | payer BC | LOC: M WHC 11:12 | PROVIDERS: ATTEND Nurse Practitioner Family | DX: Z13.820 Encounter for screening for osteoporosis (principal); M85.851 Other specified disorders of bone density and structure, right thigh; M85.852 Other specified disorders of bone density and structure, left thigh ==

== ENCOUNTER → 2023-01-25 | Outpatient (CLI) | payer BC | LOC: M WUC 08:06 | PROVIDERS: ATTEND Family Medicine | DX: M17.11 Unilateral primary osteoarthritis, right knee (principal) ==

== ENCOUNTER → 2023-07-12 | Outpatient (CLI) | payer BC | LOC: M WHC 10:18 | PROVIDERS: ATTEND Nurse Practitioner Family | DX: Z12.31 Encounter for screening mammogram for malignant neoplasm of breast (principal) ==

== ENCOUNTER → 2023-09-20 | Outpatient (CLI) | payer BC | LOC: M SLEEP HO 09:54 | PROVIDERS: ATTEND Nurse Practitioner Family | DX: G47.33 Obstructive sleep apnea (adult) (pediatric) (principal) ==

== ENCOUNTER 2023-10-26 08:04 | Day surgery (SDC) | payer BC, MEDICARE ==
[~2023-10-26] VITALS: Ht 154.9 cm; Wt 85.7 kg
[~2023-10-26 08:04] MED LIST changes: +FAMO40TA3 PO; +FURO20TA2 PO; +OXYB10TA23 PO; +SPIR-10 PO
[2023-10-26] MEDS: NS 1,000 ML IV ONE (09:24)
[2023-10-26] MEDS ORDERED: propofoL 200 MG/20 ML VIAL As Ordered ONE (10:30)
[2023-10-26 10:46] VITALS: TEMP 97
[2023-10-26 11:04] VITALS: BP 117/58; O2SAT 98
== END 2023-10-26 11:18 | disposition home or self-care (01) ==
LOC: M OPP 08:04
PROVIDERS: ATTEND Surgery
DX: R19.5 Other fecal abnormalities (principal); K64.2 Third degree hemorrhoids; K57.30 Diverticulosis of large intestine without perforation or abscess without bleeding; K64.4 Residual hemorrhoidal skin tags; Z90.49 Acquired absence of other specified parts of digestive tract; I10 Essential (primary) hypertension; E78.00 Pure hypercholesterolemia, unspecified; Z79.899 Other long term (current) drug therapy; Z79.82 Long term (current) use of aspirin; Z90.710 Acquired absence of both cervix and uterus

== ENCOUNTER → 2024-10-23 | Outpatient (CLI) | payer MEDICARE | LOC: M WHC 13:08 | PROVIDERS: ATTEND Obstetrics & Gynecology | DX: Z12.31 Encounter for screening mammogram for malignant neoplasm of breast (principal); R92.333 Mammographic heterogeneous density, bilateral breasts ==